=== PATIENT | female | born 1960 | race Caucasian/White ===

== ENCOUNTER 2018-10-22 21:42 | Emergency (ER) | payer OTHER ==
[2018-10-22 21:59] VITALS: BP 122/61
[2018-10-22] MEDS ORDERED: Ondansetron 4 MG Tab.DIS PO ONE (23:09)
--- NOTE | 2018-10-23 09:08 | ER ---
REASON FOR EMERGENCY ROOM VISIT: "I just do not feel good." HISTORY OF PRESENT ILLNESS: This 58-year-old woman has been on Flagyl and ciprofloxacin for diverticulitis for 9 days. She was diagnosed by her provider at [facility], and apparently, she had a CT scan and she tells me that the scan did not reveal any evidence of abscess and it was uncomplicated diverticulitis. She was given a 14-day supply of the above medications as an outpatient medical treatment for her diverticular disease. She vomited one time 2 nights ago and has nausea off and on since then. She has also had a mild headache, but this resolved. In addition to this, for the past 3 days, she has had pain along her right shoulder blade area and upper back area and also along her right upper chest near the right shoulder area. It is not pleuritic. It is not associated with any shortness of breath. She has had these symptoms for 3 days. The shoulder blade discomfort has been perhaps present for a few days longer. She thought she had a fever a couple of days ago, but did not actually check. It is noteworthy that she had a similar episode of right upper scapular back pain in 2016. At that time, she had shortness of breath with it and a workup at that time concluded that it was probably musculoskeletal in origin. She was treated with NSAIDs and resolved. She has had loose stools since the onset of her abdominal discomfort and this has not changed. She denies any irritative voiding symptoms or hematuria. She has not had any blood in her stools. PAST MEDICAL HISTORY: 1. Diverticulitis as mentioned above. 2. Excision of benign sacral tumor in 04/2018, followed by lumbar fusion at the [facility]. 3. Left breast lumpectomy for breast carcinoma. CURRENT MEDICATIONS: Include ciprofloxacin and Flagyl, see EMR. She is also taking aspirin. ALLERGIES: None to medications. REVIEW OF SYSTEMS: Pertinent positives and negatives as listed in the HPI. PHYSICAL EXAMINATION: GENERAL: She is in no acute distress. VITAL SIGNS: Her blood pressure is 122/61, pulse is 77, respirations 20, and O2 saturations 97%. HEENT: Head is normocephalic. No scleral icterus is noted. No conjunctivitis. Mouth, no pharyngitis. NECK: Supple with no tenderness. Normal passive range of motion. No JVD is noted. CHEST: Clear to auscultation with good air exchange bilaterally and no wheezes, rhonchi, or rales. She does have some mild tenderness in the upper outer area of her chest wall to palpation, but this is only mild. CARDIAC: Regular rate without murmur. ABDOMEN: Obese, soft. She has minimal tenderness to deep palpation in the left lower quadrant without any rebound. No percussion tenderness. No guarding is noted. No palpable masses. No hepatosplenomegaly. EXTREMITIES: Her right shoulder; there is no crepitus on passive range of motion, there is no pain elicited on passive range of motion. BACK: Examination of her back reveals some tenderness on palpation along the medial aspect of her right scapula. This is quite reproducible and she states this is exactly the same kind of pain that she has been experiencing recently. FURTHER EMERGENCY ROOM COURSE: The patient had a CBC and she has no leukocytosis. She is not anemic. CMP was performed and she has an anion gap of 16.8. Her electrolytes are normal. Her liver enzymes are normal. Creatinine is normal and her GFR is greater than 60. Troponin I was obtained and this was less than 0.017. A C. difficile toxin was obtained and this was negative. A 12-lead EKG was obtained and it showed no acute changes. IMPRESSION: Her gastrointestinal side effects may be due to the antibiotics. It is reassuring that her Clostridium difficile toxin was negative. She is supposed to be followed up by her primary care provider next week. I reassured her that I think her back pain and upper chest wall pain were not cardiac in origin, and she agrees that her symptoms are similar to that which was described from her visit of 2016. She felt quite reassured by the findings. I told her if she experiences worsening symptoms, particularly abdominal pain or worsening of diarrhea, nausea and vomiting, that she should return and be seen again. She understands. All questions were answered. PEREZ /[id number]
--- NOTE | 2018-11-08 07:06 | ER ---
ADDENDUM: FINAL IMPRESSION: Diverticulitis. MMODAL /[id number]
== END 2018-10-23 00:30 | disposition home or self-care (01) ==
LOC: JD.ED 21:42
DX: K57.92 Diverticulitis of intestine, part unspecified, without perforation or abscess without bleeding (principal)
CPT/HCPCS: 36415; 80053; 84484; 85025; 87493; 93005; 99285; A9270; 99282

== ENCOUNTER 2019-12-31 09:47 | Emergency (ER) | payer OTHER ==
[2019-12-31] MEDS ORDERED: Sodium Chloride 0.9% 1,000 ML IV STA (10:09)
[2019-12-31] MEDS ORDERED: Ondansetron 4 MG/2 ML SDV IVPUSH ONE (10:09)
--- NOTE | 2019-12-31 10:14 | EDM.PDOC ---
ED HPI GENERAL MEDICAL PROBLEM - General Chief Complaint: Abdominal Pain Stated Complaint: LOWER ABD PAIN Time Seen by Provider: 12/31/19 10:05 Source of Information: Reports: Patient History Limitations: Reports: No Limitations - History of Present Illness INITIAL COMMENTS - FREE TEXT/NARRATIVE: The patient presents with lower abdominal pain. This started yesterday. She has nausea with it but no vomiting. She has a little diarrhea. She has a history of recurrent UTIs and diverticulitis. She has no dysuria or hematuria. She has no blood in her stool. 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 She has no appendix but she still has a gallbladder. She has no fever, chills, cough, chest pain, or shortness of breath. Onset: Gradual Duration: Day(s): Location: Reports: Abdomen Quality: Reports: Sharp Severity: Moderate Improves with: Reports: None Worsens with: Reports: None Associated Symptoms: Reports: Nausea/Vomiting. Denies: Chest Pain, Cough, Fever /Chills, Headaches, Shortness of Breath Bilateral Abdomen Pain Score (Numeric/FACES): 6 - Related Data Allergies Allergy/AdvReac Type Severity Reaction Status Date / Time latex Allergy Hives Verified 12/31/19 09:58 Anesthetics - Belia Type- AdvReac Nausea and Verified 12/31/19 09:58 Parabens Vomiting [Anesthetics - Belia Type] Home Meds: Home Meds Multivitamin [Multi Vitamin Daily] 1 tab PO DAILY 05/24/14 [History] Aspirin [Ecotrin] 81 mg PO DAILY 12/24/15 [History] Amoxicillin/Potassium Clav [Augmentin 875-125 Tablet] 1 each PO BID #20 tablet 12/31/19 [Rx] Ondansetron [Zofran ODT] 4 mg PO Q6H PRN #20 tab.dis 12/31/19 [Rx] Pravastatin [Pravachol] 12/31/19 [History] Past Medical History HEENT History: Reports: Cataract Cardiovascular History: Reports: High Cholesterol Gastrointestinal History: Reports: Diverticulosis 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: Musculoskeletal History: Reports: Other (See Below) Other Musculoskeletal History: 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; 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 Psychiatric History: Reports: Anxiety Oncologic (Cancer) History: Reports: Breast - Infectious Disease History Infectious Disease History: Reports: Chicken Pox - Past Surgical History GI Surgical History: Reports: Appendectomy Female Surgical History: Reports: Hysterectomy Social & Family History - Family History Family Medical History: Noncontributory - Tobacco Use Smoking Status *Q: Never Smoker - Caffeine Use Caffeine Use: Reports: Coffee, Soda, Tea - Recreational Drug Use Recreational Drug Use: No - Living Situation & Occupation Living situation: Reports: Occupation: Employed ED ROS GENERAL - Review of Systems Review Of Systems: See Below Constitutional: Reports: No Symptoms HEENT: Reports: No Symptoms Respiratory: Reports: No Symptoms Cardiovascular: Reports: No Symptoms Endocrine: Reports: No Symptoms GI/Abdominal: Reports: Abdominal Pain, Diarrhea, Nausea. Denies: Vomiting : Reports: No Symptoms Musculoskeletal: Reports: No Symptoms ED EXAM, GI/ABD - Physical Exam Exam: See Below Exam Limited By: No Limitations General Appearance: Alert, No Apparent Distress Ears: Normal External Exam Nose: Normal Inspection Head: Atraumatic, Normocephalic Neck: Normal Inspection, Supple, Non-Tender Respiratory/Chest: No Respiratory Distress, Lungs Clear, Normal Breath Sounds Cardiovascular: Regular Rate, Rhythm, No Edema, No Murmur GI/Abdominal Exam: Soft, No Organomegaly, No Mass, Tender (Moderate tenderness to the lower abdomen) Course - Vital Signs Last Recorded V/S: Last Vital Signs Temp 97.2 F 12/31/19 09:54 Pulse 82 12/31/19 09:54 Resp 15 12/31/19 09:54 BP 155/83 H 12/31/19 09:54 Pulse Ox 98 12/31/19 09:54 - Orders/Labs/Meds Orders: Active Orders 24 hr Category Date Time Status Peripheral IV Care [RC] . DIRECTED Care 12/31/19 10:09 Active Abdomen Pelvis w Cont [CT] Stat Exams 12/31/19 10:09 Taken UA W/MICROSCOPIC [URIN] Stat Lab 12/31/19 10:11 Ordered Sodium Chloride 0.9% [Saline Flush] Med 12/31/19 10:09 Active 10 ml FLUSH ASDIRECTED PRN ED Antiemetic Medication Reflex [OM.PC] Stat Oth 12/31/19 10:09 Ordered Peripheral IV Insertion Adult [OM.PC] Stat Oth 12/31/19 10:09 Ordered Medication Orders Sodium Chloride (Saline Flush) 10 ml FLUSH ASDIRECTED PRN PRN Reason: Keep Vein Open Last Admin: 12/31/19 11:44 Dose: 10 ml Admin: 12/31/19 10:15 Dose: 10 ml Labs: Laboratory Tests 12/31/19 12/31/19 Range/Units 10:05 10:05 WBC 10.55 H (3.98-10.04) K/mm3 RBC 4.65 (3.98-5.22) M/mm3 Hgb 13.6 (11.2-15.7) gm/dl Hct 42.5 (34.1-44.9) % MCV 91.4 D (79.4-94.8) fl MCH 29.2 (25.6-32.2) pg MCHC 32.0 L (32.2-35.5) g/dl RDW Std Deviation 45.9 (36.4-46.3) fL Plt Count 231 (182-369) K/mm3 MPV 11.3 (9.4-12.3) fl Neut % (Auto) 66.4 (34.0-71.1) % Lymph % (Auto) 24.0 (19.3-51.7) % [place] % (Auto) 8.0 (4.7-12.5) % Eos % (Auto) 1.2 (0.7-5.8) Baso % (Auto) 0.2 (0.1-1.2) % Neut # (Auto) 7.01 H (1.56-6.13) K/mm3 Lymph # (Auto) 2.53 (1.18-3.74) K/mm3 [place] # (Auto) 0.84 H (0.24-0.36) K/mm3 Eos # (Auto) 0.13 (0.04-0.36) K/mm3 Baso # (Auto) 0.02 (0.01-0.08) K/mm3 Sodium 139 (136-145) mEq/L Potassium 4.3 (3.5-5.1) mEq/L Chloride 105 (98-107) mEq/L Carbon Dioxide 26 (21-32) mEq/L Anion Gap 12.3 (5-15) BUN 8 (7-18) mg/dL Creatinine 0.7 (0.55-1.02) mg/dL Est Cr Clr Drug Dosing 73.80 mL/min Estimated GFR (MDRD) > 60 (>60) mL/min BUN/Creatinine Ratio 11.4 L (14-18) Glucose 115 H (74-106) mg/dL Calcium 9.6 (8.5-10.1) mg/dL Total Bilirubin 0.8 (0.2-1.0) mg/dL AST 20 (15-37) U/L ALT 47 (14-59) U/L Alkaline Phosphatase 82 (46-116) U/L Total Protein 7.9 (6.4-8.2) g/dl Albumin 3.7 (3.4-5.0) g/dl Globulin 4.2 gm/dL Albumin/Globulin Ratio 0.9 L (1-2) Lipase 81 (73-393) U/L Meds: Medications Generic Name Dose Route Start Last Admin Trade Name Freq PRN Reason Stop Dose Admin Sodium Chloride 10 ml 12/31/19 10:09 12/31/19 11:44 Saline Flush FLUSH 10 ml ASDIRECTED PRN Administration Keep Vein Open Discontinued Medications Generic Name Dose Route Start Last Admin Trade Name Freq PRN Reason Stop Dose Admin Diatrizoate Meglum/Diatrizoate Sod 90 ml 12/31/19 11:00 12/31/19 11:44 Gastrografin 37% PO 12/31/19 11:01 90 ml ONETIME ONE Administration Sodium Chloride 1,000 mls @ 1,000 mls/hr 12/31/19 10:09 12/31/19 10:13 Normal Saline IV 12/31/19 11:08 1,000 mls/hr .BOLUS STA Administration Iopamidol 100 ml 12/31/19 11:00 12/31/19 11:44 Isovue-300 (61%) IVPUSH 12/31/19 11:01 100 ml ONETIME ONE Administration Ondansetron HCl 4 mg 12/31/19 10:09 12/31/19 10:14 Zofran IVPUSH 12/31/19 10:10 4 mg ONETIME ONE Administration - Re-Assessments/Exams Free Text/Narrative Re-Assessment/Exam: 12/31/19 10:13 I ordered an IV NS 1L bolus, zofran 4mg IV, dilaudid 1mg IV, labs, UA and a CT of her abdomen and pelvis. 12/31/19 12:31 Her WBC was elevated at 10.55. Her CMP is negative. Her lipase is normal. Her CT shows diverticulosis and bowel wall thickening along the rectosigmoid colon. Moderate inflammatory changes. No evidence of perforation or abscess formation or bleeding. Findings consistent with acute diverticulitis. I am waiting on a UA. I will get her on some augmentin. Departure - Departure Time of Disposition: 12:50 Disposition: Home, Self-Care 01 Condition: Good Clinical Impression: Diverticulitis - Discharge Information *PRESCRIPTION DRUG MONITORING PROGRAM REVIEWED*: Not Applicable *COPY OF PRESCRIPTION DRUG MONITORING REPORT IN PATIENT TEJINDER: Not Applicable Prescriptions: Amoxicillin/Potassium Clav [Augmentin 875-125 Tablet] 1 each PO BID #20 tablet Ondansetron [Zofran ODT] 4 mg PO Q6H PRN #20 tab.dis PRN Reason: Nausea\vomiting Referrals: Teofilo Mcfadden MD [Primary Care Provider] - 1 Week Forms: ED Department Discharge Additional Instructions: Take the augmentin 2 times per day for 10 days. Drink plenty of fluids. Take motrin or tylenol for pain. If that does not help, use your pain meds from your back surgery. Use the zofran 4mg every 6 hours as needed for nausea or vomiting. Please return if you are worse such as more pain, nausea or vomiting. Sepsis Event Note - Evaluation Sepsis Screening Result: No Definite Risk - Focused Exam Vital Signs: Vital Signs Temp Pulse Resp BP Pulse Ox 12/31/19 09:54 97.2 F 82 15 155/83 H 98 Date Exam was Performed: 12/31/19 Time Exam was Performed: 12:44 - My Orders Last 24 Hours: My Active Orders 12/31/19 10:09 Peripheral IV Care [RC] . DIRECTED Abdomen Pelvis w Cont [CT] Stat Sodium Chloride 0.9% [Saline Flush] 10 ml FLUSH ASDIRECTED PRN ED Antiemetic Medication Reflex [OM.PC] Stat Peripheral IV Insertion Adult [OM.PC] Stat 12/31/19 10:11 UA W/MICROSCOPIC [URIN] Stat - Assessment/Plan Last 24 Hours: My Active Orders 12/31/19 10:09 Peripheral IV Care [RC] . DIRECTED Abdomen Pelvis w Cont [CT] Stat Sodium Chloride 0.9% [Saline Flush] 10 ml FLUSH ASDIRECTED PRN ED Antiemetic Medication Reflex [OM.PC] Stat Peripheral IV Insertion Adult [OM.PC] Stat 12/31/19 10:11 UA W/MICROSCOPIC [URIN] Stat
[2019-12-31] MEDS: Sodium Chloride 0.9% 10 ML Syringe FLUSH PRN ×2 (10:15→11:44)
[2019-12-31] MEDS ORDERED: Iopamidol 612 MG/ML 100 ML Bottle IVPUSH ONE (11:00)
[2019-12-31] MEDS ORDERED: Diatrizoate Meglumine/Diatrizoate Sodium 37% 120 ML Bottle PO ONE (11:00)
[2019-12-31 13:16] VITALS: BP 120/70; PULSE 66
--- NOTE | 2019-12-31 13:51 | CT ---
CT abdomen and pelvis Technique: Multiple axial sections were obtained from above the dome of the diaphragm inferiorly through the pubic symphysis. Intravenous and oral contrast was utilized. Delayed images were also obtained through the bladder. Comparison: Prior CT abdomen and pelvis exam of 12/20/14. Findings: Visualized lung bases show nothing acute. Fatty infiltration is noted within the liver. Spleen appears within normal limits. Adrenal glands show no nodule. Gallbladder shows no calcified gallstones. Kidneys show symmetric contrast enhancement without hydronephrosis or mass. Small nonobstructing calculus is noted within the upper right kidney. Small cortical cyst is noted within the left kidney. Aorta shows no aneurysm. No retroperitoneal adenopathy is seen. No mesenteric abnormalities are seen. Diverticulosis is noted within sigmoid colon. There is an area of bowel wall thickening within the sigmoid colon with surrounding inflammatory change which appears to involve a diverticuli. Findings are most likely due to diverticulitis. No fluid collections are seen at this time to indicate abscess. Delayed images shows contrast within the distal ureters and within the bladder. Previous lumbar spine surgery noted at L4-5 and L5-S1. Mild scattered degenerative change is noted within the spine. Small fat-containing umbilical hernia is noted. Impression: 1. Findings compatible with diverticulitis involving the sigmoid colon. 2. Other findings which are believed to be nonacute as noted above. Diagnostic code #3 This report was dictated in [place] Standard Time I agree with preliminary report from [facility], finalized on 12/31/19, 1:26 PM Central Time
== END 2019-12-31 13:16 | disposition home or self-care (01) ==
LOC: JD.ED 09:47
DX: K57.32 Diverticulitis of large intestine without perforation or abscess without bleeding (principal); E78.00 Pure hypercholesterolemia, unspecified; Z79.82 Long term (current) use of aspirin; Z91.040 Latex allergy status; Z79.899 Other long term (current) drug therapy
CPT/HCPCS: 36415; 74177; 80053; 81001; 83690; 85025; 96361; 96374; 99284; J2405; J7030; Q9963; Q9967

== ENCOUNTER 2020-01-01 15:11 | Emergency (ER) | payer OTHER ==
[2020-01-01 15:31] VITALS: BP 133/86; PULSE 83
[2020-01-01] MEDS ORDERED: Ondansetron 4 MG/2 ML SDV IVPUSH ONE (15:48)
[2020-01-01] MEDS ORDERED: Sodium Chloride 0.9% 10 ML Syringe FLUSH PRN (15:48)
[2020-01-01] MEDS ORDERED: Sodium Chloride 0.9% 1,000 ML IV SCH (16:00)
--- NOTE | 2020-01-01 16:43 | EDM.PDOC ---
<Brijesh Amaya - Last Filed: 01/01/20 16:44> ED HPI GENERAL MEDICAL PROBLEM - General Chief Complaint: Gastrointestinal Problem Stated Complaint: Diverticulitis and medication reaction Time Seen by Provider: 01/01/20 15:30 Source of Information: Reports: Patient History Limitations: Reports: No Limitations - History of Present Illness INITIAL COMMENTS - FREE TEXT/NARRATIVE: Miss Denis presents today for complaints of nausea and vomiting (4 times), after being seen in the ED the day prior (12/31/2019) by Dr. Jose Mcdaniels for diagnosis and treatment of sigmoidal diverticulitis. She reports she was started on Augmentin 875 bid x 10 days, and has thus far taken 3 pills total. Her new vomiting and nausea symptoms started this morning at 4 a.m. and since that time she has vomited 4 times and had one episode of diarrhea. She reports that she forgot to inform Dr. Mcdaniels yesterday that she normally does not tolerate Augmentin well and thinks this is the reasons for her new symptoms. She denies any other passive abdominal pain, and only reports pain over the suprapubic region when palpated, and denies pain with defecation. Her only other reported symptoms were a headache, "feeling dry and dehydrated from vomiting" and that she had a "fever last night of 99.7 degrees F", but excluding that denies chest pain or palpitations, dyspnea, cough, dysuria, flank or kidney pain. She has a PMH of UTIs and other diverticulitis episodes. Upon inquiring what she has taken in the past for diverticulitis she stated ciprofloxacin and metronidazole. Headache Pain Score (Numeric/FACES): 6 - Related Data Allergies Allergy/AdvReac Type Severity Reaction Status Date / Time latex Allergy Hives Verified 01/01/20 15:30 amoxicillin [From Augmentin] AdvReac Nausea and Verified 01/01/20 16:46 Vomiting Anesthetics - Belia Type- AdvReac Nausea and Verified 01/01/20 15:30 Parabens Vomiting [Anesthetics - Belia Type] clavulanic acid AdvReac Nausea and Verified 01/01/20 16:46 [From Augmentin] Vomiting Home Meds: Home Meds Multivitamin [Multi Vitamin Daily] 1 tab PO DAILY 05/24/14 [History] Aspirin [Ecotrin] 81 mg PO DAILY 12/24/15 [History] Amoxicillin/Potassium Clav [Augmentin 875-125 Tablet] 1 each PO BID #20 tablet 12/31/19 [Rx] Ondansetron [Zofran ODT] 4 mg PO Q6H PRN #20 tab.dis 12/31/19 [Rx] Pravastatin [Pravachol] 1 tab PO DAILY 12/31/19 [History] Ciprofloxacin HCl [Cipro] 500 mg PO BID #20 tablet 01/01/20 [Rx] metroNIDAZOLE [Flagyl] 500 mg PO Q8H #20 tab 01/01/20 [Rx] Past Medical History HEENT History: Reports: Cataract Cardiovascular History: Reports: High Cholesterol Gastrointestinal History: Reports: Diverticulosis 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: Musculoskeletal History: Reports: Other (See Below) Other Musculoskeletal History: 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; 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 Psychiatric History: Reports: Anxiety Oncologic (Cancer) History: Reports: Breast - Infectious Disease History Infectious Disease History: Reports: Chicken Pox - Past Surgical History GI Surgical History: Reports: Appendectomy Female Surgical History: Reports: Hysterectomy Social & Family History - Family History Family Medical History: Noncontributory - Tobacco Use Smoking Status *Q: Never Smoker Second Hand Smoke Exposure: No - Caffeine Use Caffeine Use: Reports: None - Recreational Drug Use Recreational Drug Use: No - Living Situation & Occupation Living situation: Reports: Occupation: Employed ED ROS GENERAL - Review of Systems Constitutional: Reports: Fever (Reported by pt of "99.7"), Fatigue HEENT: Reports: Other (Headache ) Respiratory: Reports: No Symptoms Cardiovascular: Reports: No Symptoms Endocrine: Reports: No Symptoms GI/Abdominal: Reports: Abdominal Pain (suprapubic region - diagnosed with sigmoidal diverticulitis on prior ED visit ), Nausea, Vomiting (Seems to be a related to starting the Augmentin ) : Reports: No Symptoms Musculoskeletal: Reports: No Symptoms Skin: Reports: No Symptoms Neurological: Reports: No Symptoms Psychiatric: Reports: No Symptoms Hematologic/Lymphatic: Reports: No Symptoms Immunologic: Reports: No Symptoms ED EXAM, GI/ABD - Physical Exam Exam Limited By: No Limitations General Appearance: Alert, WD/WN, No Apparent Distress Head: Atraumatic, Normocephalic Respiratory/Chest: No Respiratory Distress, Lungs Clear, Normal Breath Sounds, Chest Non-Tender Cardiovascular: Normal Peripheral Pulses, Regular Rate, Rhythm, No Edema, No Gallop, No JVD, No Murmur, No Rub GI/Abdominal Exam: Normal Bowel Sounds, Soft, No Distention, No Abnormal Bruit, No Mass, Tender (Pain with suprapubic pressure ) (Female) Exam: Deferred Rectal (Female) Exam: Deferred Neurological: Alert, Oriented, Normal Cognition Psychiatric: Normal Affect, Normal Mood Lymphatic: No Adenopathy Course - Vital Signs Last Recorded V/S: Last Vital Signs Temp 97.8 F 01/01/20 15:27 Pulse 83 01/01/20 15:27 Resp 16 01/01/20 15:27 BP 133/86 01/01/20 15:27 Pulse Ox 93 L 01/01/20 15:27 - Orders/Labs/Meds Orders: Active Orders 24 hr Category Date Time Status Peripheral IV Care [RC] . DIRECTED Care 01/01/20 15:48 Active CRP [C-REACTIVE PROTEIN] [CHEM] Routine Lab 01/01/20 16:22 Received Sodium Chloride 0.9% [Normal Saline] 1,000 ml Med 01/01/20 16:00 Active IV ONETIME Sodium Chloride 0.9% [Saline Flush] Med 01/01/20 15:48 Active 10 ml FLUSH ASDIRECTED PRN Peripheral IV Insertion Adult [OM.PC] Stat Oth 01/01/20 15:47 Ordered Medication Orders Sodium Chloride (Normal Saline) 1,000 mls @ 999 mls/hr IV ONETIME [facility] Last Admin: 01/01/20 16:27 Dose: 999 mls/hr Sodium Chloride (Saline Flush) 10 ml FLUSH ASDIRECTED PRN PRN Reason: Keep Vein Open Last Admin: 01/01/20 17:12 Dose: 10 ml Labs: Laboratory Tests 01/01/20 01/01/20 Range/Units 16:22 16:22 WBC 8.31 (3.98-10.04) K/mm3 RBC 4.46 (3.98-5.22) M/mm3 Hgb 13.1 (11.2-15.7) gm/dl Hct 41.0 (34.1-44.9) % MCV 91.9 (79.4-94.8) fl MCH 29.4 (25.6-32.2) pg MCHC 32.0 L (32.2-35.5) g/dl RDW Std Deviation 45.2 (36.4-46.3) fL Plt Count 228 (182-369) K/mm3 MPV 10.8 (9.4-12.3) fl Neut % (Auto) 78.4 H (34.0-71.1) % Lymph % (Auto) 14.7 L (19.3-51.7) % Weston % (Auto) 6.0 (4.7-12.5) % Eos % (Auto) 0.6 L (0.7-5.8) Baso % (Auto) 0.2 (0.1-1.2) % Neut # (Auto) 6.51 H (1.56-6.13) K/mm3 Lymph # (Auto) 1.22 (1.18-3.74) K/mm3 Weston # (Auto) 0.50 H (0.24-0.36) K/mm3 Eos # (Auto) 0.05 (0.04-0.36) K/mm3 Baso # (Auto) 0.02 (0.01-0.08) K/mm3 Sodium 140 (136-145) mEq/L Potassium 4.2 (3.5-5.1) mEq/L Chloride 103 (98-107) mEq/L Carbon Dioxide 28 (21-32) mEq/L Anion Gap 13.2 (5-15) BUN 9 (7-18) mg/dL Creatinine 0.7 (0.55-1.02) mg/dL Est Cr Clr Drug Dosing 73.80 mL/min Estimated GFR (MDRD) > 60 (>60) mL/min BUN/Creatinine Ratio 12.9 L (14-18) Glucose 112 H (74-106) mg/dL Calcium 9.6 (8.5-10.1) mg/dL Total Bilirubin 0.6 (0.2-1.0) mg/dL AST 18 (15-37) U/L ALT 43 (14-59) U/L Alkaline Phosphatase 76 (46-116) U/L Total Protein 8.0 (6.4-8.2) g/dl Albumin 3.4 (3.4-5.0) g/dl Globulin 4.6 gm/dL Albumin/Globulin Ratio 0.7 L (1-2) Meds: Medications Generic Name Dose Route Start Last Admin Trade Name Savanna PRN Reason Stop Dose Admin Sodium Chloride 1,000 mls @ 999 mls/hr 01/01/20 16:00 01/01/20 16:27 Normal Saline IV 999 mls/hr ONETIME GELY Administration Sodium Chloride 10 ml 01/01/20 15:48 01/01/20 17:12 Saline Flush FLUSH 10 ml ASDIRECTED PRN Administration Keep Vein Open Discontinued Medications Generic Name Dose Route Start Last Admin Trade Name Savanna PRN Reason Stop Dose Admin Ondansetron HCl 4 mg 01/01/20 15:48 01/01/20 16:27 Zofran IVPUSH 01/01/20 15:49 4 mg ONETIME ONE Administration Departure - Departure Disposition: Home, Self-Care 01 Clinical Impression: Diverticulitis, Vomiting - Discharge Information Prescriptions: Ciprofloxacin HCl [Cipro] 500 mg PO BID #20 tablet metroNIDAZOLE [Flagyl] 500 mg PO Q8H #20 tab Referrals: Teofilo Mcfadden MD [Primary Care Provider] - Forms: ED Department Discharge Additional Instructions: Clear liquids and bland diet as tolerated, stop the Augmentin. Flagyl 500 mg 3 times daily for 1 week or until gone, Cipro 500 mg twice daily for 10 days or until gone. Prescriptions have been sent electronically to clinic pharmacy, start those antibiotics this evening. Try see Dr. Whipple in the clinic later this week, call for next available appointment, return to ED as needed. Sepsis Event Note - Evaluation Sepsis Screening Result: No Definite Risk - Focused Exam Vital Signs: Vital Signs Temp Pulse Resp BP Pulse Ox 01/01/20 15:27 97.8 F 83 16 133/86 93 L Date Exam was Performed: 01/01/20 Time Exam was Performed: 16:44 - My Orders Last 24 Hours: My Active Orders 01/01/20 15:47 Peripheral IV Insertion Adult [OM.PC] Stat 01/01/20 15:48 Peripheral IV Care [RC] . DIRECTED Sodium Chloride 0.9% [Saline Flush] 10 ml FLUSH ASDIRECTED PRN 01/01/20 16:00 Sodium Chloride 0.9% [Normal Saline] 1,000 ml IV ONETIME 01/01/20 16:22 CRP [C-REACTIVE PROTEIN] [CHEM] Routine - Assessment/Plan Last 24 Hours: My Active Orders 01/01/20 15:47 Peripheral IV Insertion Adult [OM.PC] Stat 01/01/20 15:48 Peripheral IV Care [RC] . DIRECTED Sodium Chloride 0.9% [Saline Flush] 10 ml FLUSH ASDIRECTED PRN 01/01/20 16:00 Sodium Chloride 0.9% [Normal Saline] 1,000 ml IV ONETIME 01/01/20 16:22 CRP [C-REACTIVE PROTEIN] [CHEM] Routine <Arnold Cassidy Castillo - Last Filed: 01/01/20 17:30> ED ROS GENERAL - Review of Systems Review Of Systems: See Below ED EXAM, GI/ABD - Physical Exam Exam: See Below Back Exam: No: CVA Tenderness (L), CVA Tenderness (R) Extremities: Normal Inspection. No: Pedal Edema, Leg Pain Skin Exam: Warm, Dry, Normal Color Course - Re-Assessments/Exams Free Text/Narrative Re-Assessment/Exam: 01/01/20 17:23 Initial hx and exam was done by John Coley PA student. I agree with Brijesh's hx and exam as documented. I have also examined and interviewed patient. I have reviewed the chart from yesterday's ED visit. She does feel better already after most of 1 L of normal saline, Zofran 4 mg IV. No active vomiting while here in the ED. Her discomfort at this time is tolerable. He feels up to going home. She is not tolerating the Augmentin and states she has had Augmentin intolerance in the past with similar symptoms but did not think of it last evening when she did start that medication. White blood count today is 8000 improved from somewhat over 10,000 yesterday. She is afebrile. Not dehydrated. Will switch her over to Cipro and Flagyl which she has tolerated without difficulty in the past. Discharge instructions as documented. Departure - Departure Time of Disposition: 17:25 Condition: Fair Sepsis Event Note - Focused Exam Date Exam was Performed: 01/01/20 Time Exam was Performed: 17:28
== END 2020-01-01 17:45 | disposition home or self-care (01) ==
LOC: JD.ED 15:11
DX: K57.92 Diverticulitis of intestine, part unspecified, without perforation or abscess without bleeding (principal); E78.00 Pure hypercholesterolemia, unspecified; F41.9 Anxiety disorder, unspecified; Z91.040 Latex allergy status; Z88.1 Allergy status to other antibiotic agents; Z91.048 Other nonmedicinal substance allergy status; Z79.82 Long term (current) use of aspirin; Z79.899 Other long term (current) drug therapy; Z90.49 Acquired absence of other specified parts of digestive tract
CPT/HCPCS: 36415; 80053; 85025; 86140; 96361; 96374; 99284; J2405; J7030; 99283

== ENCOUNTER 2020-01-15 17:19 | Emergency (ER) | payer OTHER ==
[2020-01-15 17:36] VITALS: BP 167/149; PULSE 114
[2020-01-15] MEDS ORDERED: Acetaminophen 325 MG Tab PO ONE (17:59)
--- NOTE | 2020-01-15 18:02 | EDM.PDOC ---
ED HPI GENERAL MEDICAL PROBLEM - General Chief Complaint: Respiratory Problem Stated Complaint: FEVER,SHORTNESS OF BREATH Time Seen by Provider: 01/15/20 17:38 Source of Information: Reports: Patient, Old Records, RN Notes Reviewed History Limitations: Reports: No Limitations - History of Present Illness INITIAL COMMENTS - FREE TEXT/NARRATIVE: Patient is a 59-year-old female who presents to the ED for the evaluation of multiple complaints. She states that over the last 3 days, she has been having a dry intermittent raspy cough, increased shortness of breath, and fever, and some mild chest discomfort due to the cough. She states that her fever has been as high as 100.6 F. Patient notes that she thought she had maybe a sinus/ head cold prior to this, she was trying to use steam from boiling water and this seemed to help relieve some of the symptoms. She is not having any nausea/ vomiting/diarrhea. She notes that her appetite has been fairly poor. She states that she has had a recent issue with diverticulitis, that she took her antibiotics for. Patient's primary care provider is Dr. Whipple. Patient states she has been taking Tylenol 3 times a day, her last dose was at noon. The patient states she has not had any [id number] travel, but has taken a few trips to [place] since the beginning of December, to see her son-in-law. Patient states that she has had multiple contacts with people that have traveled, she states she has a coworker that has traveled to [place] recently, another coworker that has come back from [place] recently, and a family member that has come back from [place]. - Related Data Allergies Allergy/AdvReac Type Severity Reaction Status Date / Time latex Allergy Hives Verified 01/15/20 17:36 amoxicillin [From Augmentin] AdvReac Nausea and Verified 01/15/20 17:36 Vomiting Anesthetics - Belia Type- AdvReac Nausea and Verified 01/15/20 17:36 Parabens Vomiting [Anesthetics - Belia Type] clavulanic acid AdvReac Nausea and Verified 01/15/20 17:36 [From Augmentin] Vomiting Home Meds: Home Meds Multivitamin [Multi Vitamin Daily] 1 tab PO DAILY 05/24/14 [History] Pravastatin [Pravachol] 1 tab PO DAILY 12/31/19 [History] Ascorbic Acid/Vitamin E/Biotin [Hair Skin Nails-Biotin Gummies] 2 each PO DAILY 01/15/20 [History] Cholecalciferol (Vitamin D3) [Vitamin D] 0 unit PO DAILY 01/15/20 [History] Past Medical History HEENT History: Reports: Cataract Cardiovascular History: Reports: High Cholesterol Gastrointestinal History: Reports: Diverticulosis [employer]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: Musculoskeletal History: Reports: Other (See Below) Other Musculoskeletal History: 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; fusion of lowest 2 vertebrae Psychiatric History: Reports: Anxiety Endocrine/Metabolic History: Reports: Obesity/BMI 30+ Hematologic History: Reports: Anesthesia Reaction Oncologic (Cancer) History: Reports: Breast - Infectious Disease History Infectious Disease History: Reports: Chicken Pox - Past Surgical History GI Surgical History: Reports: Appendectomy Female Surgical History: Reports: Hysterectomy Social & Family History - Family History Family Medical History: Noncontributory - Tobacco Use Smoking Status *Q: Never Smoker - Caffeine Use Caffeine Use: Reports: Coffee - Recreational Drug Use Recreational Drug Use: No - Living Situation & Occupation Living situation: Reports: Occupation: Employed ED ROS GENERAL - Review of Systems Review Of Systems: See Below Constitutional: Reports: Fever, Chills, Malaise, Decreased Appetite HEENT: Reports: Sinus Problem. Denies: Rhinitis Respiratory: Reports: Shortness of Breath, Cough Cardiovascular: Reports: Chest Pain (generalized chest discomfort) GI/Abdominal: Denies: Abdominal Pain, Constipation, Diarrhea, Nausea, Vomiting ED EXAM, GENERAL - Physical Exam Exam: See Below Exam Limited By: No Limitations General Appearance: Alert, WD/WN, No Apparent Distress Eye Exam: Bilateral Eye: EOMI, Normal Inspection, PERRL Ears: Normal External Exam Nose: Normal Inspection Throat/Mouth: Normal Inspection, Normal Lips, Normal Teeth, Normal Gums, Normal Oropharynx, Normal Voice, No Airway Compromise Head: Atraumatic, Normocephalic Neck: Normal Inspection Respiratory/Chest: No Respiratory Distress, Lungs Clear, No Accessory Muscle Use , Chest Non-Tender, Decreased Breath Sounds (decreased over R lung field) Cardiovascular: Normal Peripheral Pulses, Regular Rate, Rhythm, No Murmur Peripheral Pulses: 3+: Radial (L), Radial (R) GI/Abdominal: Normal Bowel Sounds, Soft, Non-Tender, No Distention, No Mass Extremities: Normal Inspection, Normal Capillary Refill Neurological: Alert, Oriented, Normal Cognition, No Motor/Sensory Deficits Psychiatric: Normal Affect, Normal Mood Skin Exam: Warm, Dry, Intact, Normal Color, No Rash Course - Vital Signs Last Recorded V/S: Last Vital Signs Temp 100.1 F 01/15/20 17:32 Pulse 114 H 01/15/20 17:32 Resp 16 01/15/20 17:32 BP 167/149 H 01/15/20 17:32 Pulse Ox 94 L 01/15/20 17:32 - Orders/Labs/Meds Orders: Active Orders 24 hr Category Date Time Status CORONAVIRUS COVID-19 PCR PHL [MREF] Stat Lab 01/15/20 18:22 Received Isolation [COMM] Routine Oth 01/15/20 17:40 Ordered Meds: Medications Discontinued Medications Generic Name Dose Route Start Last Admin Trade Name Savanna PRN Reason Stop Dose Admin Acetaminophen 975 mg 01/15/20 17:59 01/15/20 18:27 Tylenol PO 01/15/20 18:00 975 mg NOW ONE Administration - Re-Assessments/Exams Free Text/Narrative Re-Assessment/Exam: 01/15/20 18:03 Patient presents to the ED for the evaluation of few different complaints. Patient will be checked for influenza, coronavirus and have a chest x-ray done. Patient has had multiple contacts with people that have traveled, none have had positive coronavirus results, but she developed symptoms after being exposed to people that have traveled. Have also ordered 975 mg of Tylenol for fever relief in the ER. Departure - Departure Time of Disposition: 19:28 Disposition: Home, Self-Care 01 Condition: Fair Clinical Impression: Viral URI with cough - Discharge Information *PRESCRIPTION DRUG MONITORING PROGRAM REVIEWED*: No *COPY OF PRESCRIPTION DRUG MONITORING REPORT IN PATIENT TEJINDER: No Instructions: Viral Respiratory Infection, [id number] Referrals: Teofilo Mcfadden MD [Primary Care Provider] - Forms: ED Department Discharge Additional Instructions: You have been evaluated in the ED today for your cold like symptoms. Your influenza and RSV swabs were negative at today's visit. You did have a swab taken for coronavirus, this is a send out test, tests are sent to [facility] once daily at 2:30 PM, please note this can take up to 24 to 48 hours to get results. You will be called and made notified if you have positive or negative results. Please expect a call from a private number in the next few days. Your chest x-ray showed no signs of a pneumonia at today's visit. Please increase your fluid intake. Get plenty of rest as well. You should feel better in a few days. As with any illness, please try to limit your exposure to others to help mitigate the spread of germs. Please also remember to wash your hands after you cough/sneeze. Please try to limit touching your face, and then touching other surfaces. The [facility] is requesting that people that have been tested for coronavirus self quarantine at home, please try to not leave your house unless absolutely necessary. It is recommended that you self quarantine for at least 7 days after the first symptoms appeared. Recommend that you take some [id number] nasal decongestants, cough/cold remedies to combat this. You may take 500mg Tylenol (acetaminophen) or 600mg Advil/Motrin (ibuprofen) every 6 hours as needed for further pain/fever relief. Do not exceed 4000 mg Tylenol or 3200 mg ibuprofen in a 24-hour time span. If you have high blood pressure, medications like Coricidin would be adequate to use. If your symptoms are not better in one week's time recommend that you follow up in a clinic or your primary care provider. Our [facility] clinic number is , the [place] clinic is [phone]. Any family practice provider would be able to provide you with the services. Please return to the ED if your symptoms change or worsen. Sepsis Event Note - Evaluation Sepsis Screening Result: Possible Sepsis Risk - Focused Exam Vital Signs: Vital Signs Temp Pulse Resp BP Pulse Ox 01/15/20 17:32 100.1 F 114 H 16 167/149 H 94 L Date Exam was Performed: 01/15/20 Time Exam was Performed: 21:05 - My Orders Last 24 Hours: My Active Orders 01/15/20 17:40 Isolation [COMM] Routine 01/15/20 18:22 CORONAVIRUS COVID-19 PCR PHL [MREF] Stat - Assessment/Plan Last 24 Hours: My Active Orders 01/15/20 17:40 Isolation [COMM] Routine 01/15/20 18:22 CORONAVIRUS COVID-19 PCR PHL [MREF] Stat
--- NOTE | 2020-01-15 18:22 | CR ---
Chest: PA and lateral views of the chest were obtained. Comparison: Prior chest x-ray of 12/24/15 is available. Findings: Slight atelectasis is seen within the left lung base. Lungs otherwise are clear. Heart size and mediastinum are within normal limits. Bony structures are within normal limits for the patient's age. Impression: 1. Nothing acute is appreciated on 2 view chest x-ray. Diagnostic code #2 This report was dictated in MDT
== END 2020-01-15 19:50 | disposition home or self-care (01) ==
LOC: JD.ED 17:19
DX: J06.9 Acute upper respiratory infection, unspecified (principal); Z91.040 Latex allergy status; Z88.1 Allergy status to other antibiotic agents; Z88.8 Allergy status to other drugs, medicaments and biological substances
CPT/HCPCS: 71046; 87804; 87807; 99285; A9270; U0001; 99282

== ENCOUNTER 2020-07-02 10:38 | Inpatient (IN) | payer OTHER ==
--- NOTE | 2020-07-02 11:29 | EDM.PDOC ---
ED HPI GENERAL MEDICAL PROBLEM - General Chief Complaint: Gastrointestinal Problem Stated Complaint: HAS A ABSCESS Time Seen by Provider: 07/02/20 11:27 Source of Information: Reports: Patient History Limitations: Reports: No Limitations - History of Present Illness INITIAL COMMENTS - FREE TEXT/NARRATIVE: 59-year-old female presents to the ED after being seen in the walk-in clinic at [facility] this morning. She has a history of recurrent diverticulitis she estimates at least 4 5 times in the past. 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 This was done at the [facility]. She had a recent MRI of her lumbar spine but does not know the results. This was done as follow-up to see if the tumor had regrown. The last 3 days she has had gradually worsening left lower quadrant abdominal pain. Loss of appetite. Fever of 99 last night and 99.2 this morning. No nausea or vomiting. Stools are always on the loose side. No blood. Bowel movements do not hurt. She has chronic microscopic hematuria and voiding does not make the pain in her left lower quadrant any worse. In the clinic this morning they did lab work which showed an elevated white count at 13,000 with a left shift. No other markers for inflammation were done. Chemistry was normal including a normal lipase and a normal urinalysis. CT of the abdomen was carried out and revealed a diffuse sigmoid diverticulitis with a. Diverticular abscess of 13 mm in size. Comments if there was any free air. Did not send the CT over to the ED for further evaluation. She was sent to the ED for further evaluation. Onset: Gradual Onset Date: 06/29/20 Duration: Day(s):, Getting Worse Location: Reports: Abdomen (Left lower quadrant of the abdomen which she is able to localize very well.) Quality: Reports: Ache Severity: Moderate (Is a deep aching pain with occasional cramping pain) Improves with: Reports: Rest ( noted 10) Worsens with: Reports: Other Context: Reports: Other (Continuous occurrence.). Denies: Activity (Walking coughing and sitting in the car make it worse.), Exercise, Lifting, Sick Contact, Trauma Associated Symptoms: Reports: Fever/Chills (Grade), Loss of Appetite. Denies: Confusion, Chest Pain, Cough, cough w sputum, Diaphoresis ( low-grade fever appreciated this morning with a temperature of 99.1.), Headaches, Malaise, Nausea/Vomiting, Rash, Seizure, Shortness of Breath, Weakness Treatments IT DIRECTOR: Reports: Other (see below) (None.) Left Lower Abdomen Pain Score (Numeric/FACES): 1 - Related Data Allergies Allergy/AdvReac Type Severity Reaction Status Date / Time latex Allergy Hives Verified 07/02/20 10:49 amoxicillin [From Augmentin] AdvReac Nausea and Verified 07/02/20 10:49 Vomiting Anesthetics - Belia Type- AdvReac Nausea and Verified 07/02/20 10:49 Parabens Vomiting [Anesthetics - Belia Type] clavulanic acid AdvReac Nausea and Verified 07/02/20 10:49 [From Augmentin] Vomiting Home Meds: Home Meds Multivitamin [Multi Vitamin Daily] 1 tab PO DAILY 05/24/14 [History] Pravastatin [Pravachol] 1 tab PO DAILY 12/31/19 [History] Ascorbic Acid/Vitamin E/Biotin [Hair Skin Nails-Biotin Gummies] 2 each PO DAILY 01/15/20 [History] Cholecalciferol (Vitamin D3) [Vitamin D] 0 unit PO DAILY 01/15/20 [History] Aspirin [Aspirin EC] 81 mg PO DAILY 07/02/20 [History] Cranberry Ext/C/L. 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; fusion of lowest 2 vertebrae Neurological History: Reports: None Psychiatric History: Reports: Anxiety Endocrine/Metabolic History: Reports: Obesity/BMI 30+ Hematologic History: Reports: Anesthesia Reaction Immunologic History: Reports: None Oncologic (Cancer) History: Reports: Breast Dermatologic History: Reports: None - Infectious Disease History Infectious Disease History: Reports: Chicken Pox - Past Surgical History GI Surgical History: Reports: Appendectomy Female Surgical History: Reports: Hysterectomy (She believes her left ovary was removed but the right remains.), Oophorectomy (Left) Musculoskeletal Surgical History: Reports: Other (See Below) (In June 2018 she underwent 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 It is unclear what level this was at and apparently had been present for multiple years causing severe pain.) Social & Family History - Family History Family Medical History: Noncontributory - Tobacco Use Smoking Status *Q: Never Smoker - Caffeine Use Caffeine Use: Reports: Coffee, Tea - Recreational Drug Use Recreational Drug Use: No - Living Situation & Occupation Living situation: Reports: Occupation: Employed ED ROS GENERAL - Review of Systems Review Of Systems: See Below Constitutional: Reports: Fever, Malaise, Weakness, Fatigue, Decreased Appetite. Denies: Chills HEENT: Reports: No Symptoms Respiratory: Reports: No Symptoms Cardiovascular: Reports: No Symptoms Endocrine: Reports: No Symptoms GI/Abdominal: Reports: Abdominal Pain (Left lower quadrant abdominal pain), Diarrhea (Is are on the looser side), Decreased Appetite (. But not diarrhea.). Denies: Hematemesis, Hematochezia, Nausea, Vomiting : Reports: Frequency, Other (Has chronic microscopic hematuria which was been assessed by urology with negative cystoscopies.) Musculoskeletal: Reports: Back Pain (Chronic low back pain lumbar spine. Removal of a benign large tumor in 2018 from the spine through an anterior abdominal approach.) Skin: Reports: No Symptoms Neurological: Reports: No Symptoms Psychiatric: Reports: No Symptoms Hematologic/Lymphatic: Reports: No Symptoms Immunologic: Reports: No Symptoms ED EXAM, GI/ABD - Physical Exam Exam: See Below Exam Limited By: No Limitations General Appearance: Alert, WD/WN, No Apparent Distress, Other (Temperature is 36.8 with a heart rate of 97 respiratory is 18 with sats of 97% blood pressure is not recorded.) Eyes: Bilateral: Normal Appearance (No scleral icterus or blepharal pallor.) Throat/Mouth: Normal Inspection, Normal Lips, Normal Oropharynx Neck: Normal Inspection, Supple, Non-Tender, Full Range of Motion. No: Carotid Bruit, Lymphadenopathy (L), Lymphadenopathy (R) Respiratory/Chest: No Respiratory Distress, Lungs Clear, Normal Breath Sounds, No Accessory Muscle Use, Chest Non-Tender Cardiovascular: Normal Peripheral Pulses, Regular Rate, Rhythm, No Edema, No Gallop, No Murmur, No Rub GI/Abdominal Exam: No Organomegaly, Distended (All sounds are quite active in all 4 quadrants.), Guarding ( Streamline tender left lower quadrant of the abdomen with guarding and rebound.), Rebound (Lower quadrant lower quadrant), Tender ( Slightly distended tympanitic to percussion in all 4 quadrants.), Abnormal Bowel Sounds, Other (She has a positive Rovsing sign on the opposite side. She has a midline laparotomy incision which is healed well from umbilicus to the pubic symphysis.) Back Exam: Normal Inspection Extremities: Normal Inspection, Normal Range of Motion, Non-Tender, No Pedal Edema Neurological: Alert, Oriented, CN II-XII Intact, Normal Cognition, Normal Gait Psychiatric: Normal Affect, Normal Mood Skin Exam: Warm, Dry, Intact, Normal Color, No Rash Course - Vital Signs Last Recorded V/S: Last Vital Signs Temp 36.8 C 07/02/20 10:43 Pulse 97 07/02/20 10:43 Resp 18 07/02/20 10:43 BP Pulse Ox 97 07/02/20 10:43 - Orders/Labs/Meds Orders: Active Orders 24 hr Category Date Time Status CULTURE BLOOD [BC] Stat Lab 07/02/20 12:15 Received CULTURE BLOOD [BC] Stat Lab 07/02/20 12:25 Received Dextrose 5%-0.9% NaCl [Dextrose 5%-Normal Saline] 1,000 Med 07/02/20 11:45 Active ml IV ASDIRECTED Blood Culture x2 Reflex Set [OM.PC] Stat Oth 07/02/20 11:45 Ordered Medication Orders Acetaminophen (Tylenol) 975 mg PO Q8H GELY Dextrose/Sodium Chloride (Dextrose 5%-Normal Saline) 1,000 mls @ 150 mls/hr IV ASDIRECTED GELY Last Admin: 07/02/20 11:57 Dose: 150 mls/hr Documented by: KATERIN Levofloxacin/Dextrose 750 mg/ (Premix) 150 mls @ 100 mls/hr IV Q24H GELY Metronidazole 500 mg/ Premix 100 mls @ 100 mls/hr IV Q8H GELY Morphine Sulfate (Morphine) 1 mg IVPUSH Q4H PRN PRN Reason: Pain (severe 7-10) Oxycodone HCl (Oxycodone) 5 mg PO Q4H PRN PRN Reason: Pain (moderate 4-6) Labs: Laboratory Tests 07/02/20 07/02/20 07/02/20 Range/Units 12:15 12:25 12:50 WBC 11.01 H (3.98-10.04) K/mm3 RBC 4.15 (3.98-5.22) M/mm3 Hgb 12.4 (11.2-15.7) gm/dl Hct 38.5 (34.1-44.9) % MCV 92.8 (79.4-94.8) fl MCH 29.9 (25.6-32.2) pg MCHC 32.2 (32.2-35.5) g/dl RDW Std Deviation 46.9 H (36.4-46.3) fL Plt Count 243 (182-369) K/mm3 MPV 10.9 (9.4-12.3) fl Neutrophils % (Manual) 73 H (40-60) % Band Neutrophils % 0 (0-10) % Lymphocytes % (Manual) 18 L (20-40) % Atypical Lymphs % 0 % Monocytes % (Manual) 9 (2-10) % Eosinophils % (Manual) 0 L (0.7-5.8) % Basophils % (Manual) 0 L (0.1-1.2) Platelet Estimate Adequate RBC Morph Comment Normal Magnesium 1.9 (1.8-2.4) mg/dl C-Reactive Protein 23.1 H* (<1.0) mg/dL SARS Virus RNA (PCR) Negative (NEGATIVE) Meds: Medications Generic Name Dose Route Start Last Admin Trade Name Freq PRN Reason Stop Dose Admin Acetaminophen 975 mg 07/02/20 13:45 Tylenol PO Q8H [facility] Dextrose/Sodium Chloride 1,000 mls @ 150 mls/hr 07/02/20 11:45 07/02/20 11:57 Dextrose 5%-Normal Saline IV 150 mls/hr ASDIRECTED GELY Administration Levofloxacin/Dextrose 750 mg/ 150 mls @ 100 mls/hr 07/03/20 12:30 Premix IV Q24H GELY Metronidazole 500 mg/ Premix 100 mls @ 100 mls/hr 07/02/20 20:45 IV Q8H GELY Morphine Sulfate 1 mg 07/02/20 13:44 Morphine IVPUSH Q4H PRN Pain (severe 7-10) Oxycodone HCl 5 mg 07/02/20 13:44 Oxycodone PO Q4H PRN Pain (moderate 4-6) Discontinued Medications Generic Name Dose Route Start Last Admin Trade Name Savanna PRN Reason Stop Dose Admin Levofloxacin/Dextrose 750 mg/ 150 mls @ 100 mls/hr 07/02/20 11:45 07/02/20 12:37 Premix IV 07/02/20 13:14 100 mls/hr ONETIME ONE Administration Metronidazole 500 mg/ Premix 100 mls @ 100 mls/hr 07/02/20 11:47 07/02/20 12:45 IV 07/02/20 12:46 100 mls/hr ONETIME ONE Administration - Radiology Interpretation Free Text/Narrative:: 59-year-old female presents to the ED for evaluation of gradually worsening left lower quadrant abdominal pain over the last 3 days and perhaps a little longer. Low-grade fever developing last night and noted again at 3:00 this morning of 99.1. Gradually worsening left lower quadrant abdominal pain which he feels is secondary to diverticulitis and was confirmed at the clinic today with CT scan of the abdomen and pelvis. It did reveal a periappendiceal abscess approximately 13 mm in size. I do not have the CT present in the department to look at. Lab work revealed a slightly elevated white count at 13.5 with a left shift. Blood cultures were not done. Examination confirms peritoneal signs with guarding and rebound in the left lower quadrant of the abdomen and a positive rub sign which is opposite to the norm. Plan will start antibiotic Levaquin 750 mg IV and Flagyl 500 mg IV. Will discuss case with surgeon to see whether or not they feel she needs to be seen in a larger center for potential interventional radiology drainage of sigmoid abscess. - Re-Assessments/Exams Free Text/Narrative Re-Assessment/Exam: 07/02/20 11:[address] Mayur Stoner on-call surgeon who is in the OR at this time. Over the speaker phone we agreed that the patient should be admitted to the hospital for IV antibiotic therapy. He request that I write bridge orders and he will see her on the oneill when she is finished up with surgery. 07/02/20 14:[address] scan done of the abdomen and pelvis this morning at [facility] to be sent over to the PACS system it has not yet arrived on my last look for it.White count is slightly elevated 11.01. It is 73% neutrophils with no bands cells reported. Hemoglobin is 12.4 with hematocrit of 38.5. Platelet count is 243,000. Serum magnesium is normal at 1.9 C-reactive protein markedly elevated at 23.1. COVID 19 test is negative. The remainder the labs came across with the patient and revealed no metabolic abnormalities and normal platelet count. Departure - Departure Time of Disposition: 14:33 Disposition: Admitted As Inpatient 65 Condition: Fair Clinical Impression: Acute diverticulitis Abdominal pain Qualifiers: Abdominal location: left lower quadrant Qualified Code(s): R10.32 - Left lower quadrant pain - Discharge Information *PRESCRIPTION DRUG MONITORING PROGRAM REVIEWED*: Not Applicable *COPY OF PRESCRIPTION DRUG MONITORING REPORT IN PATIENT TEJINDER: Not Applicable Sepsis Event Note (ED) - Evaluation Sepsis Screening Result: No Definite Risk - Focused Exam Vital Signs: Vital Signs Temp Pulse Resp Pulse Ox 07/02/20 10:43 36.8 C 97 18 97 - My Orders Last 24 Hours: My Active Orders 07/02/20 11:45 Dextrose 5%-0.9% NaCl [Dextrose 5%-Normal Saline] 1,000 ml IV ASDIRECTED Blood Culture x2 Reflex Set [OM.PC] Stat 07/02/20 12:15 CULTURE BLOOD [BC] Stat 07/02/20 12:25 CULTURE BLOOD [BC] Stat - Assessment/Plan Last 24 Hours: My Active Orders 07/02/20 11:45 Dextrose 5%-0.9% NaCl [Dextrose 5%-Normal Saline] 1,000 ml IV ASDIRECTED Blood Culture x2 Reflex Set [OM.PC] Stat 07/02/20 12:15 CULTURE BLOOD [BC] Stat 07/02/20 12:25 CULTURE BLOOD [BC] Stat
[2020-07-02] MEDS ORDERED: Levofloxacin/Dextrose 5%-Water 750 MG in Premix Bag 1 BAG IV ONE (11:45)
[2020-07-02] MEDS ORDERED: metroNIDAZOLE/Normal Saline 500 MG in Premix Bag 1 BAG IV ONE (11:47)
[2020-07-02] MEDS: Dextrose 5%-0.9% NaCl 1,000 ML IV SCH ×2 (11:57→21:01)
[2020-07-02] MEDS ORDERED: Morphine 2 MG/ML SYRINGE IVPUSH PRN (13:44)
[2020-07-02] MEDS ORDERED: oxyCODONE 5 MG Tab PO PRN (13:44)
--- NOTE | 2020-07-02 13:54 | PCM.HP.2 ---
H&P History of Present Illness - General Date of Service: 07/02/20 Admit Problem/Dx: Admission Diagnosis/Problem Admission Diagnosis/Problem Acute diverticulitis of intestine Source of Information: Patient History Limitations: Reports: No Limitations - History of Present Illness Onset of Symptoms: Reports: Today Other HPI/Comments: Mr.s Denis is a 59 yo woman with history of diverticulitis who presents to the ER with LLQ abdominal pain, similar to previous episodes of diverticulitis. She has been having pain for about two weeks, and has gotten steadily worse. Her last bowel movement was today. She reports she last had a colonoscopy about 5 y ears ago; she has had now 5 episodes of diverticulitis, and the initial episode preceded her most recent colonoscopy. She was seen at the [facility] walk-in clinic today and had a CT scan which reportedly shows diverticulitis of the sigmoid colon with 1.3 cm associated abscess. Left Lower Abdomen Pain Score (Numeric/FACES): 1 - Related Data Allergies/Adverse Reactions: Allergies Allergy/AdvReac Type Severity Reaction Status Date / Time latex Allergy Hives Verified 07/02/20 10:49 amoxicillin [From Augmentin] AdvReac Nausea and Verified 07/02/20 10:49 Vomiting Anesthetics - Belia Type- AdvReac Nausea and Verified 07/02/20 10:49 Parabens Vomiting [Anesthetics - Belia Type] clavulanic acid AdvReac Nausea and Verified 07/02/20 10:49 [From Augmentin] Vomiting Home Medications: Home Meds Multivitamin [Multi Vitamin Daily] 1 tab PO DAILY 05/24/14 [History] Pravastatin [Pravachol] 1 tab PO DAILY 12/31/19 [History] Ascorbic Acid/Vitamin E/Biotin [Hair Skin Nails-Biotin Gummies] 2 each PO DAILY 01/15/20 [History] Cholecalciferol (Vitamin D3) [Vitamin D] 0 unit PO DAILY 01/15/20 [History] Aspirin [Aspirin EC] 81 mg PO DAILY 07/02/20 [History] Cranberry Ext/C/L. 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; fusion of lowest 2 vertebrae Neurological History: Reports: None Psychiatric History: Reports: Anxiety Endocrine/Metabolic History: Reports: Obesity/BMI 30+ Hematologic History: Reports: Anesthesia Reaction Immunologic History: Reports: None Oncologic (Cancer) History: Reports: Breast Dermatologic History: Reports: None - Infectious Disease History Infectious Disease History: Reports: Chicken Pox - Past Surgical History GI Surgical History: Reports: Appendectomy Female Surgical History: Reports: Hysterectomy (She believes her left ovary was removed but the right remains.), Oophorectomy (Left) Musculoskeletal Surgical History: Reports: Other (See Below) (In June 2018 she underwent 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 It is unclear what level this was at and apparently had been present for multiple years causing severe pain.) Social & Family History - Family History Family Medical History: Noncontributory - Tobacco Use Smoking Status *Q: Never Smoker - Caffeine Use Caffeine Use: Reports: Coffee, Tea - Recreational Drug Use Recreational Drug Use: No - Living Situation & Occupation Living situation: Reports: Occupation: Employed H&P Review of Systems - Review of Systems: Review Of Systems: See Below General: Reports: Malaise HEENT: Reports: No Symptoms Pulmonary: Reports: No Symptoms Cardiovascular: Reports: No Symptoms Gastrointestinal: Reports: Abdominal Pain Genitourinary: Reports: No Symptoms Musculoskeletal: Reports: Back Pain Skin: Reports: No Symptoms Psychiatric: Reports: No Symptoms Neurological: Reports: No Symptoms Hematologic/Lymphatic: Reports: No Symptoms Immunologic: Reports: No Symptoms Exam - Exam Exam: See Below - Vital Signs Vital Signs: Last Vital Signs Temp 36.8 C 07/02/20 10:43 Pulse 97 07/02/20 10:43 Resp 18 07/02/20 10:43 BP Pulse Ox 97 07/02/20 10:43 Weight: 92.079 kg - Exam General: Alert, Oriented, Cooperative HEENT: Conjunctiva Clear Neck: Trachea Midline Lungs: Normal Respiratory Effort Cardiovascular: Regular Rate, Regular Rhythm GI/Abdominal Exam: Other (focal LLQ tenderness without rigidity. No palpable mass. Laparotomy scar noted wtih no evidence of hernia. ) (Female) Exam: Deferred Extremities: Normal Inspection Skin: Warm, Dry Neuro Extensive - Mental Status: Alert, Oriented x3 Psychiatric: Normal Mood - Patient Data Lab Results Last 24 hrs: Laboratory Results - last 24 hr 07/02/20 07/02/20 Range/Units 12:15 12:25 WBC 11.01 H (3.98-10.04) K/mm3 RBC 4.15 (3.98-5.22) M/mm3 Hgb 12.4 (11.2-15.7) gm/dl Hct 38.5 (34.1-44.9) % MCV 92.8 (79.4-94.8) fl MCH 29.9 (25.6-32.2) pg MCHC 32.2 (32.2-35.5) g/dl RDW Std Deviation 46.9 H (36.4-46.3) fL Plt Count 243 (182-369) K/mm3 MPV 10.9 (9.4-12.3) fl Neutrophils % (Manual) 73 H (40-60) % Band Neutrophils % 0 (0-10) % Lymphocytes % (Manual) 18 L (20-40) % Atypical Lymphs % 0 % Monocytes % (Manual) 9 (2-10) % Eosinophils % (Manual) 0 L (0.7-5.8) % Basophils % (Manual) 0 L (0.1-1.2) Platelet Estimate Adequate RBC Morph Comment Normal Magnesium 1.9 (1.8-2.4) mg/dl C-Reactive Protein 23.1 H* (<1.0) mg/dL Result Diagrams: 07/02/20 12:25 Sepsis Event Note - Evaluation Sepsis Screening Result: No Definite Risk - Focused Exam Vital Signs: Vital Signs Temp Pulse Resp Pulse Ox 07/02/20 10:43 36.8 C 97 18 97 Problem List Initiated/Reviewed/Updated: Yes Orders Last 24hrs: Active Orders 24 hr Category Date Time Status Patient Status [ADT] Routine ADT 07/02/20 13:05 Active Activity as Tolerated [RC] .Routine Care 07/02/20 13:44 Ordered Antiembolic Devices [RC] PER UNIT ROUTINE Care 07/02/20 13:44 Ordered Oxygen Therapy [RC] PRN Care 07/02/20 13:44 Ordered RT Incentive Spirometry [RC] Q1HWA Care 07/02/20 13:44 Ordered Vital Signs [RC] Q15M Care 07/02/20 13:44 Ordered Vital Signs [RC] Q8H Care 07/02/20 13:44 Ordered Nothing Per Oral Diet [DIET] Diet 07/02/20 Breakfast Ordered BASIC METABOLIC PANEL,BMP [CHEM] AM Lab 07/03/20 05:11 Ordered CBC WITH AUTO DIFF [HEME] AM Lab 07/03/20 05:11 Ordered CORONAVIRUS COVID-19 DEMARCO [MOLEC] Stat Lab 07/02/20 12:50 Received CULTURE BLOOD [BC] Stat Lab 07/02/20 12:15 Received CULTURE BLOOD [BC] Stat Lab 07/02/20 12:25 Received Acetaminophen [TylenoL] Med 07/02/20 13:45 Ordered 975 mg PO Q8H Dextrose 5%-0.9% NaCl [Dextrose 5%-Normal Saline] 1,000 Med 07/02/20 11:45 Active ml IV ASDIRECTED Levofloxacin/Dextrose 5%-Water [Levaquin in D5W 750 MG/ Med 07/02/20 13:45 Ordered 150 ML] 750 mg Premix Bag 1 bag IV Q24H Morphine Med 07/02/20 13:44 Ordered 1 mg IVPUSH Q4H PRN metroNIDAZOLE/Normal Saline [Flagyl 500 MG in NS 100 ML Med 07/02/20 14:00 Ordered ] 500 mg Premix Bag 1 bag IV Q8H oxyCODONE Med 07/02/20 13:44 Ordered 5 mg PO Q4H PRN Blood Culture x2 Reflex Set [OM.PC] Stat Oth 07/02/20 11:45 Ordered Sequential Compression Device [OM.PC] Routine Oth 07/02/20 13:44 Ordered Resuscitation Status Routine Resus Stat 07/02/20 13:44 Ordered Medication Orders Acetaminophen (Tylenol) 975 mg PO Q8H GELY Dextrose/Sodium Chloride (Dextrose 5%-Normal Saline) 1,000 mls @ 150 mls/hr IV ASDIRECTED GELY Last Admin: 07/02/20 11:57 Dose: 150 mls/hr Documented by: KATERIN Levofloxacin/Dextrose 750 mg/ (Premix) 150 mls @ 100 mls/hr IV Q24H GELY Metronidazole 500 mg/ Premix 100 mls @ 100 mls/hr IV Q8H GELY Morphine Sulfate (Morphine) 1 mg IVPUSH Q4H PRN PRN Reason: Pain (severe 7-10) Oxycodone HCl (Oxycodone) 5 mg PO Q4H PRN PRN Reason: Pain (moderate 4-6) Assessment/Plan Comment:: Recurrent diverticulitis with very small abscess reported on CT. Plan: admit for bowel rest, IV antibiotics, fluids and monitoring. Request images from [facility]. Repeat labs in AM. Anticipate discharge to home tomorrow vs next day if labs are normal and patient can tolerated PO intake. Discussed repeat colonoscopy and sigmoid colectomy in the near future after she is recovered from this episode. - Mortality Measure Prognosis:: Good
[2020-07-02] MEDS: Acetaminophen 325 MG Tab PO SCH ×2 (15:05→21:37)
[2020-07-02] MEDS: metroNIDAZOLE/Normal Saline 500 MG in Premix Bag 1 BAG IV SCH (20:42)
[2020-07-03] MEDS: metroNIDAZOLE/Normal Saline 500 MG in Premix Bag 1 BAG IV SCH (04:37)
[2020-07-03] MEDS: Dextrose 5%-0.9% NaCl 1,000 ML IV SCH (04:38)
[2020-07-03] MEDS: Acetaminophen 325 MG Tab PO SCH ×2 (04:58→13:16)
[2020-07-03 11:47] VITALS: BP 117/72; PULSE 73
--- NOTE | 2020-07-03 12:11 | PCM.DCSUM1 ---
Discharge Summary - Hospital Course Free Text/Narrative:: Mrs. Denis presented to the ER from [facility] due to a recurrent episode of diverticulitis. She had a CT scan which showed a very small associated abscess, too small for a drain. She was kept NPO and antibiotics were started. She quickly improved, and the following day her WBC was back to normal. Her diet was advanced and she was switched over to an oral antibiotic regimen. Diagnosis: Stroke: No - Discharge Data Discharge Date: 07/03/20 Discharge Disposition: Home, Self-Care 01 Condition: Good - Referral to Home Health Primary Care Physician: Teofilo Mcfadden MD - Patient Summary/Data Recommended Follow-up Testing/Procedures: colonoscopy and sigmoid colectomy after resolution of diverticulitis. - Patient Instructions Diet: Usual Diet as Tolerated Showering/Bathing: May Shower Notify Provider of: Fever, Increased Pain, Nausea and/or Vomiting - Discharge Plan *PRESCRIPTION DRUG MONITORING PROGRAM REVIEWED*: Not Applicable *COPY OF PRESCRIPTION DRUG MONITORING REPORT IN PATIENT TEJINDER: Not Applicable Prescriptions/Med Rec: Levofloxacin 750 mg PO DAILY #14 tablet metroNIDAZOLE [Metronidazole] 500 mg PO Q8H #42 tablet oxyCODONE 5 mg PO Q6H PRN #10 tab PRN Reason: Pain Home Medications: Home Meds Multivitamin [Multi Vitamin Daily] 1 tab PO DAILY 05/24/14 [History] Pravastatin [Pravachol] 20 mg PO DAILY 12/31/19 [History] Ascorbic Acid/Vitamin E/Biotin [Hair Skin Nails-Biotin Gummies] 2 each PO DAILY 01/15/20 [History] Cholecalciferol (Vitamin D3) [Vitamin D] 2 tab PO DAILY 01/15/20 [History] Aspirin [Aspirin EC] 81 mg PO DAILY 07/02/20 [History] Cranberry Ext/C/L. Sporogenes [Azo Cranberry] 2 tab PO DAILY 07/02/20 [History] Levofloxacin 750 mg PO DAILY #14 tablet 07/03/20 [Rx] metroNIDAZOLE [Metronidazole] 500 mg PO Q8H #42 tablet 07/03/20 [Rx] oxyCODONE 5 mg PO Q6H PRN #10 tab 07/03/20 [Rx] Oxygen Therapy Mode: Room Air Patient Handouts: Diverticulitis, [id number] Forms: ED Department Discharge Referrals: Mayur Stoner MD [Physician] - Teofilo Mcfadden MD [Primary Care Provider] - - Discharge Summary/Plan Comment DC Time >30 min.: No - Patient Data Vitals - Most Recent: Last Vital Signs Temp 36.7 C 07/03/20 11:36 Pulse 73 07/03/20 11:36 Resp 20 07/03/20 11:36 BP 117/72 07/03/20 11:36 Pulse Ox 96 07/03/20 11:36 Weight - Most Recent: 90.945 kg I&O - Last 24 hours: Intake & Output 07/02/20 07/03/20 07/03/20 22:59 06:59 14:59 Intake Total 1683 300 Output Total 850 Balance 833 300 Lab Results - Last 24 hrs: Laboratory Results - last 24 hr 07/02/20 07/02/20 07/02/20 Range/Units 12:15 12:25 12:50 WBC 11.01 H (3.98-10.04) K/mm3 RBC 4.15 (3.98-5.22) M/mm3 Hgb 12.4 (11.2-15.7) gm/dl Hct 38.5 (34.1-44.9) % MCV 92.8 (79.4-94.8) fl MCH 29.9 (25.6-32.2) pg MCHC 32.2 (32.2-35.5) g/dl RDW Std Deviation 46.9 H (36.4-46.3) fL Plt Count 243 (182-369) K/mm3 MPV 10.9 (9.4-12.3) fl Neut % (Auto) (34.0-71.1) % Lymph % (Auto) (19.3-51.7) % Greer % (Auto) (4.7-12.5) % Eos % (Auto) (0.7-5.8) Baso % (Auto) (0.1-1.2) % Neut # (Auto) (1.56-6.13) K/mm3 Lymph # (Auto) (1.18-3.74) K/mm3 Greer # (Auto) (0.24-0.36) K/mm3 Eos # (Auto) (0.04-0.36) K/mm3 Baso # (Auto) (0.01-0.08) K/mm3 Neutrophils % (Manual) 73 H (40-60) % Band Neutrophils % 0 (0-10) % Lymphocytes % (Manual) 18 L (20-40) % Atypical Lymphs % 0 % Monocytes % (Manual) 9 (2-10) % Eosinophils % (Manual) 0 L (0.7-5.8) % Basophils % (Manual) 0 L (0.1-1.2) Platelet Estimate Adequate RBC Morph Comment Normal Sodium (136-145) mEq/L Potassium (3.5-5.1) mEq/L Chloride (98-107) mEq/L Carbon Dioxide (21-32) mEq/L Anion Gap (5-15) BUN (7-18) mg/dL Creatinine (0.55-1.02) mg/dL Est Cr Clr Drug Dosing mL/min Estimated GFR (MDRD) (>60) mL/min BUN/Creatinine Ratio (14-18) Glucose (74-106) mg/dL Calcium (8.5-10.1) mg/dL Magnesium 1.9 (1.8-2.4) mg/dl C-Reactive Protein 23.1 H* (<1.0) mg/dL SARS Virus RNA (PCR) Negative (NEGATIVE) 07/03/20 07/03/20 Range/Units 04:33 04:33 WBC 5.43 (3.98-10.04) K/mm3 RBC 3.66 L (3.98-5.22) M/mm3 Hgb 10.8 L D (11.2-15.7) gm/dl Hct 34.4 (34.1-44.9) % MCV 94.0 (79.4-94.8) fl MCH 29.5 (25.6-32.2) pg MCHC 31.4 L (32.2-35.5) g/dl RDW Std Deviation 46.5 H (36.4-46.3) fL Plt Count 215 (182-369) K/mm3 MPV 10.5 (9.4-12.3) fl Neut % (Auto) 56.1 (34.0-71.1) % Lymph % (Auto) 30.9 (19.3-51.7) % Greer % (Auto) 9.8 (4.7-12.5) % Eos % (Auto) 2.8 (0.7-5.8) Baso % (Auto) 0.2 (0.1-1.2) % Neut # (Auto) 3.05 (1.56-6.13) K/mm3 Lymph # (Auto) 1.68 (1.18-3.74) K/mm3 Greer # (Auto) 0.53 H (0.24-0.36) K/mm3 Eos # (Auto) 0.15 (0.04-0.36) K/mm3 Baso # (Auto) 0.01 (0.01-0.08) K/mm3 Neutrophils % (Manual) (40-60) % Band Neutrophils % (0-10) % Lymphocytes % (Manual) (20-40) % Atypical Lymphs % % Monocytes % (Manual) (2-10) % Eosinophils % (Manual) (0.7-5.8) % Basophils % (Manual) (0.1-1.2) Platelet Estimate RBC Morph Comment Sodium 146 H (136-145) mEq/L Potassium 3.8 (3.5-5.1) mEq/L Chloride 109 H (98-107) mEq/L Carbon Dioxide 29 (21-32) mEq/L Anion Gap 11.8 (5-15) BUN 6 L (7-18) mg/dL Creatinine 0.8 (0.55-1.02) mg/dL Est Cr Clr Drug Dosing 61.86 mL/min Estimated GFR (MDRD) > 60 (>60) mL/min BUN/Creatinine Ratio 7.5 L (14-18) Glucose 144 H (74-106) mg/dL Calcium 8.6 (8.5-10.1) mg/dL Magnesium (1.8-2.4) mg/dl C-Reactive Protein (<1.0) mg/dL SARS Virus RNA (PCR) (NEGATIVE) Med Orders - Current: Current Medications Acetaminophen (Tylenol) 975 mg PO Q8H [facility] Last Admin: 07/03/20 04:58 Dose: 975 mg Documented by: Levofloxacin (Levaquin) 750 mg PO Q24H [facility] Metronidazole (Flagyl) 500 mg PO Q8H [facility] Morphine Sulfate (Morphine) 1 mg IVPUSH Q4H PRN PRN Reason: Pain (severe 7-10) Oxycodone HCl (Oxycodone) 5 mg PO Q4H PRN PRN Reason: Pain (moderate 4-6) Last Admin: 07/02/20 22:17 Dose: 5 mg Documented by: Discontinued Medications Dextrose/Sodium Chloride (Dextrose 5%-Normal Saline) 1,000 mls @ 150 mls/hr IV ASDIRECTED [facility] Last Admin: 07/03/20 04:38 Dose: 150 mls/hr Documented by: Levofloxacin/Dextrose 750 mg/ (Premix) 150 mls @ 100 mls/hr IV ONETIME ONE Stop: 07/02/20 13:14 Last Admin: 07/02/20 12:37 Dose: 100 mls/hr Documented by: Metronidazole 500 mg/ Premix 100 mls @ 100 mls/hr IV ONETIME ONE Stop: 07/02/20 12:46 Last Admin: 07/02/20 12:45 Dose: 100 mls/hr Documented by: Levofloxacin/Dextrose 750 mg/ (Premix) 150 mls @ 100 mls/hr IV Q24H [facility] Metronidazole 500 mg/ Premix 100 mls @ 100 mls/hr IV Q8H [facility] Last Admin: 07/03/20 04:37 Dose: 100 mls/hr Documented by:
[2020-07-03] MEDS ORDERED: metroNIDAZOLE 500 MG Tab PO SCH (12:30)
[2020-07-03] MEDS ORDERED: Levofloxacin 750 MG Tab PO SCH (12:30)
[2020-07-03] MEDS ORDERED: Levofloxacin/Dextrose 5%-Water 750 MG in Premix Bag 1 BAG IV SCH (12:30)
== END 2020-07-03 14:29 | disposition home or self-care (01) | DRG 392 ==
LOC: JD.ED 10:38 → JD.MS 13:05
PROVIDERS: ADMIT Surgery; ATTEND Surgery
DX: K57.20 Diverticulitis of large intestine with perforation and abscess without bleeding (principal); E78.00 Pure hypercholesterolemia, unspecified; F41.9 Anxiety disorder, unspecified; Z98.1 Arthrodesis status; E66.9 Obesity, unspecified; Z85.3 Personal history of malignant neoplasm of breast; Z90.49 Acquired absence of other specified parts of digestive tract; Z79.82 Long term (current) use of aspirin; Z79.899 Other long term (current) drug therapy; Z90.710 Acquired absence of both cervix and uterus; Z91.040 Latex allergy status; Z88.0 Allergy status to penicillin; Z88.4 Allergy status to anesthetic agent; Z68.35 Body mass index [BMI] 35.0-35.9, adult; Z20.828 Contact with and (suspected) exposure to other viral communicable diseases
CPT/HCPCS: 36415; 80048; 83735; 85007; 85025; 85027; 86140; 87040; 96361; 96365; 96368; 99284-25; 99285; A9270-GY; J1956; J3490; J7042; U0002

== ENCOUNTER 2020-08-13 09:31 | Inpatient (IN) | payer OTHER ==
[~2020-08-13 09:31] MED LIST: Dexamethasone 4 MG/ML 5 ML MDV ONE; Ketorolac 30 MG/ML SDV ONE; Lactated Ringers 1,000 ML IV SCH; Lidocaine 1% 4 ML ONE; Lidocaine 1%/Sod Bicarbonate in NS 8.4% 1 ML Syringe IDERM PRN; Midazolam 1 MG/ML 2 ML SDV ONE; Ondansetron 4 MG/2 ML SDV ONE; Propofol 200 MG/20 ML SDV ONE; Rocuronium 50 MG/5 ML Vial ONE; Sodium Chloride 0.9% 10 ML Syringe FLUSH PRN; fentaNYL 100 MCG/2 ML SDV ONE
[2020-08-13] MEDS ORDERED: Scopolamine 1.5 MG Transdermal Patch TOP SCH (09:48)
--- NOTE | 2020-08-13 10:17 | PCM.PREANE ---
Preanesthetic Assessment - Procedure Proposed Procedure: diag colonoscopy lap partial colectomy - Anesthesia/Transfusion/Family Hx Anesthesia History: Prior Anesthesia Reaction Type of Anesthesia Reaction: Excessive Nausea/Vomiting Transfusion History: No Prior Transfusion(s) - Review of Systems General: No Symptoms Pulmonary: No Symptoms Cardiovascular: No Symptoms Gastrointestinal: Diarrhea Neurological: No Symptoms - Physical Assessment NPO Status Date: 08/12/20 NPO Status Time: 23:30 Vital Signs: 139/80 92 95% 16 97.5 Height: 53 ft Weight: 89.2 kg ASA Class: 2 Mental Status: Alert & Oriented x3 Airway Class: Mallampati = 2 Dentition: Reports: Normal Dentition Thyro-Mental Finger Breadths: 3 Mouth Opening Finger Breadths: 3 ROM/Head Extension: Full Lungs: Clear to Auscultation, Normal Respiratory Effort Cardiovascular: Regular Rate, Regular Rhythm - Allergies Allergies/Adverse Reactions: Allergies Allergy/AdvReac Type Severity Reaction Status Date / Time latex Allergy Hives Verified 08/13/20 10:08 amoxicillin [From Augmentin] AdvReac Nausea and Verified 08/13/20 10:08 Vomiting Anesthetics - Belia Type- AdvReac Nausea and Verified 08/13/20 10:08 Parabens Vomiting [Anesthetics - Belia Type] clavulanic acid AdvReac Nausea and Verified 08/13/20 10:08 [From Augmentin] Vomiting - Blood Blood Available: No - Acknowledgements Anesthesia Type Planned: General Anesthesia Pt an Appropriate Candidate for the Planned Anesthesia: Yes Alternatives and Risks of Anesthesia Discussed w Pt/Guardian: Yes Pt/Guardian Understands and Agrees with Anesthesia Plan: Yes PreAnesthesia Questionnaire HEENT History: Reports: Cataract Cardiovascular History: Reports: High Cholesterol Respiratory History: Reports: Sleep Apnea Gastrointestinal History: Reports: Diverticulosis, GERD Genitourinary History: Reports: None 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: Musculoskeletal History: Reports: Back Pain, Chronic, Osteoarthritis, Other (See Below) Other Musculoskeletal History: 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; fusion of lowest 2 vertebrae Neurological History: Reports: None Psychiatric History: Reports: Anxiety Endocrine/Metabolic History: Reports: Obesity/BMI 30+ Hematologic History: Reports: Anesthesia Reaction Immunologic History: Reports: None Oncologic (Cancer) History: Reports: Breast Dermatologic History: Reports: Other (See Below) Other Dermatologic History: lumpectomy - Infectious Disease History Infectious Disease History: Reports: None - Past Surgical History HEENT Surgical History: Reports: Other (See Below) Other HEENT Surgeries/Procedures: wisdom teeth Cardiovascular Surgical History: Reports: None Respiratory Surgical History: Reports: None GI Surgical History: Reports: Appendectomy, Colonoscopy, Other (See Below) Other GI Surgeries/Procedures: laparotomy for removal of sacrococcygeal tumor Female Surgical History: Reports: Section, Hysterectomy, Oophorectomy Male Surgical History: Reports: None Endocrine Surgical History: Reports: None Neurological Surgical History: Reports: Lumbar Spine, Spinal Fusion Musculoskeletal Surgical History: Oncologic Surgical History: Reports: Biopsy of Breast, Lumpectomy Dermatological Surgical History: Reports: None - SUBSTANCE USE Tobacco Use Status *Q: Never Tobacco User Tobacco Use Within Last Twelve Months: No Second Hand Smoke Exposure: No Days Per Week of Alcohol Use: 0 Recreational Drug Use History: No - HOME MEDS Home Medications: Home Meds Pravastatin [Pravachol] 20 mg PO DAILY 12/31/19 [History] - CURRENT (IN HOUSE) MEDS Current Meds: Current Medications Lactated Ringer's (Ringers, Lactated) 1,000 mls @ 125 mls/hr IV ASDIRECTED GELY Stop: 08/13/20 23:00 Lidocaine/Sodium Bicarbonate (Buffered Lidocaine 1% In Ns 8.4%) 0.25 ml IDERM ONETIME PRN PRN Reason: Prior to IV Start Stop: 08/13/20 18:00 Scopolamine (Transderm-Scop) 1.5 mg TOP ONETIME GELY Stop: 08/13/20 13:00 Last Admin: 08/13/20 10:11 Dose: 1.5 mg Documented by: Sodium Chloride (Saline Flush) 10 ml FLUSH ASDIRECTED PRN PRN Reason: Keep Vein Open Stop: 08/13/20 18:00 Discontinued Medications Dexamethasone (Dexamethasone) Confirm Administered Dose 20 mg .ROUTE .STK-MED ONE Stop: 08/13/20 09:15 Fentanyl (Sublimaze) Confirm Administered Dose 100 mcg .ROUTE .STK-MED ONE Stop: 08/13/20 09:14 Fentanyl (Sublimaze) Confirm Administered Dose 100 mcg .ROUTE .STK-MED ONE Stop: 08/13/20 09:17 Lidocaine HCl (Xylocaine-Mpf 1%) Confirm Administered Dose 4 mls @ as directed .ROUTE .STK-MED ONE Stop: 08/13/20 09:15 Ketorolac Tromethamine (Toradol) Confirm Administered Dose 30 mg .ROUTE .STK-MED ONE Stop: 08/13/20 09:15 Midazolam HCl (Versed 1 Mg/Ml) Confirm Administered Dose 2 mg .ROUTE .STK-MED ONE Stop: 08/13/20 09:14 Ondansetron HCl (Zofran) Confirm Administered Dose 4 mg .ROUTE .STK-MED ONE Stop: 08/13/20 09:15 Propofol (Diprivan 20 Ml) Confirm Administered Dose 400 mg .ROUTE .STK-MED ONE Stop: 08/13/20 09:13 Rocuronium [place] (Zemuron) Confirm Administered Dose 50 mg .ROUTE .STK-MED ONE Stop: 08/13/20 09:15
[2020-08-13] MEDS ORDERED: Bupivacaine 0.5%/EPINEPHrine 1:200,000 50 ML MDV ONE ×2 (10:23→10:30)
[2020-08-13] MEDS ORDERED: Succinylcholine/Sod PF 100 MG/5 ML SYRINGE IV ONE ×2 (11:27)
[2020-08-13] MEDS ORDERED: Lactated Ringers 1,000 ML ONE ×3 (11:52→15:35)
[2020-08-13] MEDS ORDERED: Albuterol 6.7 GM Inhaler INH ONE (11:57)
[2020-08-13] MEDS ORDERED: ePHEDrine Sulfate/0.9% NaCl/Pf 25 MG/5 ML SYRINGE IV ONE (12:17)
[2020-08-13] MEDS ORDERED: HYDROmorphone 0.5 MG/0.5 ML Syringe ONE ×4 (12:17→14:58)
[2020-08-13] MEDS ORDERED: Ketamine 500 mg/10 ML MDV ONE (12:56)
[2020-08-13] MEDS ORDERED: Rocuronium 50 MG/5 ML Vial ONE (14:13)
[2020-08-13] MEDS ORDERED: Ondansetron 4 MG/2 ML SDV ONE (15:32)
--- NOTE | 2020-08-13 16:10 | PCM.POSTAN ---
POST ANESTHESIA ASSESSMENT - MENTAL STATUS Mental Status: Somnolent - VITAL SIGNS Vital Signs: Last Vital Signs Temp 97.5 F 08/13/20 09:45 Pulse 92 08/13/20 09:45 Resp 16 08/13/20 09:45 BP 139/80 08/13/20 09:45 Pulse Ox 95 08/13/20 09:45 1600 136/820 11 108 98.6 92% - RESPIRATORY Respiratory Status: Respiratory Rate WNL, Airway Patent, O2 Saturation Stable, Supplemental Oxygen - CARDIOVASCULAR CV Status: Pulse Rate WNL, Blood Pressure Stable - GASTROINTESTINAL GI Status: No Symptoms - PAIN Pain Score: 0 (sleepy) - POST OP HYDRATION Hydration Status: Adequate & Stable
--- NOTE | 2020-08-13 16:11 | PCM.PRNOTE ---
- Free Text/Narrative Note: Date:
--- NOTE | 2020-08-13 16:33 | PCM.PRNOTE ---
- Free Text/Narrative Note: Date: 08/13/2020 Operation: diagnostic colonoscopy followed by laparoscopic sigmoid colectomy with stapled colorectal anastomosis Indication: recurrent diverticulitis Surgeon: Mayur Stoner MD Findings: extensive diverticulitis throughout colon. Left ureter was identified and preserved during dissection. A roughly 30 cm specimen of sigmoid colon was resected. A 25 mm stapled end to end anastomosis was created without undue tension and leak test was negative. Detailed Report: Time out was performed. General endotracheal anesthesia was initiated. The patient was placed in low lithotomy position. First, colonoscopy was performed. Aside from extensive diverticular disease, no abnormalities were noted. Next, a quintanilla catheter was placed and the abdomen and perineum prepped and draped in sterile fashion. A Veress needle was placed at the LUQ to establish pneumoperitoneum. A 5 mm bladed port was then placed at the RUQ after insufflation reached a pressure of 15 mm Hg. A 5 mm 30 degree laparoscope was inserted. The Veress insertion appeared to have not caused any inadevertent injury and was removed. A 12 mm port was placed at the umbilicus and another 5 mm port at the right lower quadrant. There was some adhesions to the lower midline which were freed with the Ligasure. Next, the sigmoid colon was tented up and pulled toward the pelvis, putting tension on the sigmoid mesentery and vascular supply. A plane of dissection was developed between the mesenteric vessels and the retroperitoneum. Dissection was tedious due to patient habitus. As a result, the lower midline was opened and a gel port for hand-assist was placed. There were adhesions between the sigmoid colon and the left pelvic brim and anterior lower abdomen. Careful dissection ensued. The left ureter was identified and protected. Lateral attachments were divided along the White line of [place]. A point of healthy bowel was identified at the distal descending colon. This area was denuded of fat and the colon divided transversely with a powered 60 mm stapler. The sigmoid colon was then placed on traction cephalad, and dissection carried down along the superior mesorectum. Once the superior part of the rectum was cleared, the gel port was removed and the Contour stapler was used to divide at the superior aspect of the rectum transversely. The specimen was then freed and passed off. Additional dissection of lateral attachments and omental attachments near the splenic flexure was done in order to bring the colon down to the pelvis without tension. Next, the colon staple line was opened, and the anvil for the EEA stapler was placed into the lumen and secured with a pursestring PDS stitch. This was placed back in the abdomen and laparoscopy was restarted. The stapler was passed transanally up to the staple line and the stapler was opened, with the spike coming out at the rectal staple line. The stapler and anvil were mated with hand assistance. Some additional dissection was done at this time to ensure no undue tension on the colon. The stapler was then brought together, closed and fired. Two intact rings of tissue were retrieved from the stapler. Next, fluid was instilled in the pelvis and a rigid sigmoidoscope was placed to insufflate at the staple line. No bubble leak was noted. The scope was removed, and intra-abdominal fluid suctioned up. The larger port site was closed with 0 vicryl suture using the laparoscopic suture passer. Pneumoperitoneum was then released and ports removed. The midline fascia was closed with running 1 PDS suture. Skin was closed at all sites with interrupted 3-0 vicryl deep dermal sutures and dressed with mastisol and steri- strips. The patient tolerated the procedure well.
[2020-08-13] MEDS ORDERED: HYDROmorphone 0.5 MG/0.5 ML Syringe IVPUSH PRN (16:37)
[2020-08-13] MEDS ORDERED: fentaNYL 100 MCG/2 ML SDV IVPUSH PRN (16:37)
[2020-08-13] MEDS ORDERED: Ondansetron 4 MG/2 ML SDV IVPUSH PRN (16:37)
[2020-08-13] MEDS: Heparin Sodium 5,000 Units/ML Vial SUBCUT SCH (17:50)
[2020-08-13] MEDS: Acetaminophen 325 MG Tab PO SCH (17:50)
[2020-08-13] MEDS: HYDROmorphone 0.5 MG/0.5 ML Syringe IVPUSH PRN ×2 (17:51→22:15)
[2020-08-13] MEDS: oxyCODONE 5 MG Tab PO PRN (19:30)
[2020-08-13] MEDS: Lactated Ringers 1,000 ML IV SCH (22:15)
[2020-08-14] MEDS: Heparin Sodium 5,000 Units/ML Vial SUBCUT SCH ×3 (00:48→16:17)
[2020-08-14] MEDS: oxyCODONE 5 MG Tab PO PRN ×4 (00:49→16:18)
[2020-08-14] MEDS: Acetaminophen 325 MG Tab PO SCH ×3 (00:49→16:17)
[2020-08-14] MEDS: Lactated Ringers 1,000 ML IV SCH ×2 (07:05→17:21)
[2020-08-14] MEDS ORDERED: Ondansetron 4 MG in Sodium Chloride 0.9% 50 ML IV PRN (09:37)
[2020-08-14] MEDS ORDERED: Ondansetron 4 MG/2 ML SDV IVPUSH PRN (09:39)
--- NOTE | 2020-08-14 11:07 | PCM48HPAN ---
Post Anesthesia Note - EVALUATION WITHIN 48HRS OF ANESTHETIC Vital Signs in Normal Range: Yes Patient Participated in Evaluation: Yes Respiratory Function Stable: Yes (On 1L /NC) Airway Patent: Yes Cardiovascular Function Stable: Yes Hydration Status Stable: Yes Pain Control Satisfactory: Yes Nausea and Vomiting Control Satisfactory: Yes Mental Status Recovered: Yes Vital Signs: Last Vital Signs Temp 36.7 C 08/14/20 08:04 Pulse 105 H 08/14/20 08:04 Resp 16 08/14/20 08:04 BP 127/68 08/14/20 08:04 Pulse Ox 93 L 08/14/20 09:53
--- NOTE | 2020-08-14 15:44 | PCM.SN.2 ---
- Free Text/Narrative Note: S/p elective laparoscopic assisted sigmoid colectomy for recurrent diverticulitis 08/13/2020 S: some abdominal pain and soreness. No flatus. Tolerating clears. O: AF- sinus tachycardia stable at 100-105 overnight, improved this morning to 80s. Labs this morning are reassuring. Awake and alert, no distress abdomen soft, appropriately tender quintanilla in place, good urine output A: Doing well s/p sigmoid colectomy yesterday P: -continue pain regimen of dilaudid, oxycodone prn, scheduled tylenol -IS, OOB, wean O2 as tolerated -LR @ 100 cc/hr -clear liquid diet, await return of bowel function -remove quintanilla catheter, f/u trial of void -heparin, SCD for dvt ppx
[2020-08-14] MEDS: HYDROmorphone 0.5 MG/0.5 ML Syringe IVPUSH PRN (18:30)
[2020-08-15] MEDS: Heparin Sodium 5,000 Units/ML Vial SUBCUT SCH ×4 (00:57→23:30)
[2020-08-15] MEDS: Acetaminophen 325 MG Tab PO SCH ×4 (00:57→23:31)
[2020-08-15] MEDS: oxyCODONE 5 MG Tab PO PRN ×4 (00:58→22:24)
[2020-08-15] MEDS: Lactated Ringers 1,000 ML IV SCH (01:58)
[2020-08-15] MEDS: Polyethylene Glycol 3350 Powder 17 GM Packet PO SCH (10:47)
[2020-08-15] MEDS: Docusate Sodium 100 MG Cap PO SCH (10:47)
--- NOTE | 2020-08-15 16:40 | PCM.SN.2 ---
- Free Text/Narrative Note: S/p elective laparoscopic assisted sigmoid colectomy for recurrent diverticulitis 08/13/2020 S: Reports some flatus. No BM. Tolerating clears but not much appetite. Pain improved. O: AF- VSS Awake and alert, no distress abdomen soft, appropriately tender Incision sites clean, dry, intact A: Doing well s/p sigmoid colectomy, POD #2 P: -continue pain regimen of dilaudid, oxycodone prn, scheduled tylenol -IS, OOB, wean O2 as tolerated -ella -regular diet as tolerated, added colace -repeat labs in AM -heparin, SCD for dvt ppx
[2020-08-16] MEDS: Docusate Sodium 100 MG Cap PO SCH ×2 (09:17→21:27)
[2020-08-16] MEDS: Acetaminophen 325 MG Tab PO SCH ×2 (09:17→17:02)
[2020-08-16] MEDS: Polyethylene Glycol 3350 Powder 17 GM Packet PO SCH (09:18)
[2020-08-16] MEDS: Heparin Sodium 5,000 Units/ML Vial SUBCUT SCH ×2 (09:18→17:02)
--- NOTE | 2020-08-16 09:18 | PCM.HP.2 ---
H&P History of Present Illness - General Date of Service: 08/13/20 Admit Problem/Dx: Admission Diagnosis/Problem Admission Diagnosis/Problem Diverticulitis recurrent sigmoid diverticulitis Source of Information: Patient History Limitations: Reports: No Limitations - History of Present Illness Initial Comments - Free Text/Narative: This patient presents for elective laparoscopic sigmoid colectomy for recurrent diverticulitis, as documented in the clinic note from a few weeks ago. Abdomen Pain Score (Numeric/FACES): 8 - Related Data Allergies/Adverse Reactions: Allergies Allergy/AdvReac Type Severity Reaction Status Date / Time latex Allergy Hives Verified 08/14/20 08:17 amoxicillin [From Augmentin] AdvReac Nausea and Verified 08/14/20 08:17 Vomiting Anesthetics - Belia Type- AdvReac Nausea and Verified 08/14/20 08:17 Parabens Vomiting [Anesthetics - Belia Type] clavulanic acid AdvReac Nausea and Verified 08/14/20 08:17 [From Augmentin] Vomiting Home Medications: Home Meds Pravastatin [Pravachol] 20 mg PO DAILY 12/31/19 [History] Past Medical History HEENT History: Reports: Cataract Cardiovascular History: Reports: High Cholesterol Respiratory History: Reports: Sleep Apnea Gastrointestinal History: Reports: Diverticulosis, GERD Genitourinary History: Reports: UTI, 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, Musculoskeletal History: Reports: Back Pain, Chronic, Osteoarthritis, Other (See Below) Other Musculoskeletal History: 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; fusion of lowest 2 vertebrae Neurological History: Reports: Migraines Psychiatric History: Reports: Anxiety Endocrine/Metabolic History: Reports: Obesity/BMI 30+ Hematologic History: Reports: Anesthesia Reaction Immunologic History: Reports: None Oncologic (Cancer) History: Reports: Breast Dermatologic History: Reports: Other (See Below) Other Dermatologic History: lumpectomy - Infectious Disease History Infectious Disease History: Reports: Chicken Pox, Measles - Past Surgical History HEENT Surgical History: Reports: Other (See Below) Other HEENT Surgeries/Procedures: wisdom teeth Cardiovascular Surgical History: Reports: None Respiratory Surgical History: Reports: None GI Surgical History: Reports: Appendectomy, Colonoscopy, Other (See Below) Other GI Surgeries/Procedures: laparotomy for removal of sacrococcygeal tumor Female Surgical History: Reports: Hysterectomy, Oophorectomy Endocrine Surgical History: Reports: None Neurological Surgical History: Reports: Lumbar Spine, Spinal Fusion Oncologic Surgical History: Reports: Biopsy of Breast, Lumpectomy Other Oncologic Surgeries/Procedures: 2012 Dermatological Surgical History: Reports: None Social & Family History - Family History Family Medical History: Noncontributory - Tobacco Use Tobacco Use Status *Q: Never Tobacco User Second Hand Smoke Exposure: No - Caffeine Use Caffeine Use: Reports: Coffee, Soda, Tea - Alcohol Use Days Per Week of Alcohol Use: 0 - Recreational Drug Use Recreational Drug Use: No Drug Use in Last 12 Months: No - Living Situation & Occupation Living situation: Reports: Occupation: Employed H&P Review of Systems - Review of Systems: Review Of Systems: See Below General: Reports: No Symptoms HEENT: Reports: No Symptoms Pulmonary: Reports: No Symptoms Cardiovascular: Reports: No Symptoms Gastrointestinal: Reports: No Symptoms Genitourinary: Reports: No Symptoms Musculoskeletal: Reports: No Symptoms Skin: Reports: No Symptoms Psychiatric: Reports: No Symptoms Neurological: Reports: No Symptoms Hematologic/Lymphatic: Reports: No Symptoms Immunologic: Reports: No Symptoms Exam - Exam Exam: See Below - Vital Signs Vital Signs: Last Vital Signs Temp 36.7 C 08/16/20 05:15 Pulse 84 08/16/20 05:15 Resp 18 08/16/20 05:15 BP 145/77 H 08/16/20 05:15 Pulse Ox 94 L 08/16/20 05:15 Weight: 90.492 kg - Exam General: Alert, Oriented, Cooperative HEENT: Conjunctiva Clear Neck: Supple Lungs: Clear to Auscultation Cardiovascular: Regular Rate GI/Abdominal Exam: Soft Extremities: Normal Inspection Skin: Warm, Dry Neuro Extensive - Mental Status: Alert, Oriented x3 Psychiatric: Normal Mood - Patient Data Lab Results Last 24 hrs: Laboratory Results - last 24 hr 08/16/20 08/16/20 Range/Units 06:00 06:00 WBC 6.68 (3.98-10.04) K/mm3 RBC 3.61 L (3.98-5.22) M/mm3 Hgb 10.6 L (11.2-15.7) gm/dl Hct 33.8 L (34.1-44.9) % MCV 93.6 (79.4-94.8) fl MCH 29.4 (25.6-32.2) pg MCHC 31.4 L (32.2-35.5) g/dl RDW Std Deviation 44.7 (36.4-46.3) fL Plt Count 230 (182-369) K/mm3 MPV 10.1 (9.4-12.3) fl Neut % (Auto) 77.6 H (34.0-71.1) % Lymph % (Auto) 14.4 L (19.3-51.7) % Hamilton % (Auto) 4.9 (4.7-12.5) % Eos % (Auto) 2.4 (0.7-5.8) Baso % (Auto) 0.3 (0.1-1.2) % Neut # (Auto) 5.18 (1.56-6.13) K/mm3 Lymph # (Auto) 0.96 L (1.18-3.74) K/mm3 Hamilton # (Auto) 0.33 (0.24-0.36) K/mm3 Eos # (Auto) 0.16 (0.04-0.36) K/mm3 Baso # (Auto) 0.02 (0.01-0.08) K/mm3 Sodium 137 (136-145) mEq/L Potassium 3.5 (3.5-5.1) mEq/L Chloride 100 (98-107) mEq/L Carbon Dioxide 25 (21-32) mEq/L Anion Gap 15.5 H (5-15) BUN 5 L (7-18) mg/dL Creatinine 0.6 (0.55-1.02) mg/dL Est Cr Clr Drug Dosing 82.48 mL/min Estimated GFR (MDRD) > 60 (>60) mL/min BUN/Creatinine Ratio 8.3 L (14-18) Glucose 105 (74-106) mg/dL Calcium 8.6 (8.5-10.1) mg/dL Result Diagrams: 08/16/20 06:00 08/16/20 06:00 Sepsis Event Note - Evaluation Sepsis Screening Result: No Definite Risk - Focused Exam Vital Signs: Vital Signs Temp Pulse Resp BP Pulse Ox 08/16/20 05:15 36.7 C 84 18 145/77 H 94 L 08/15/20 23:39 91 92 L Problem List Initiated/Reviewed/Updated: Yes Orders Last 24hrs: Active Orders 24 hr Category Date Time Status Regular Diet [DIET] Diet 08/15/20 Lunch Active Docusate Sodium [Colace] Med 08/15/20 09:45 Active 100 mg PO DAILY polyethylene glycoL 3350 [MiraLAX] Med 08/15/20 09:45 Active 17 gm PO DAILY Medication Orders Acetaminophen (Tylenol) 975 mg PO Q8H [facility] Last Admin: 08/15/20 23:31 Dose: 975 mg Documented by: Admin: 08/15/20 16:48 Dose: 975 mg Documented by: Admin: 08/15/20 07:57 Dose: 975 mg Documented by: Admin: 08/15/20 00:57 Dose: 975 mg Documented by: Admin: 08/14/20 16:17 Dose: 975 mg Documented by: Admin: 08/14/20 07:05 Dose: 975 mg Documented by: Admin: 08/14/20 00:49 Dose: 975 mg Documented by: Admin: 08/13/20 17:50 Dose: 975 mg Documented by: YENY Docusate Sodium (Colace) 100 mg PO DAILY [facility] Last Admin: 08/15/20 10:47 Dose: 100 mg Documented by: KAR Heparin Sodium (Porcine) (Heparin Sodium) 5,000 units SUBCUT Q8H [facility] Last Admin: 08/15/20 23:30 Dose: 5,000 units Documented by: Admin: 08/15/20 16:49 Dose: 5,000 units Documented by: Admin: 08/15/20 07:59 Dose: 5,000 units Documented by: Admin: 08/15/20 00:57 Dose: 5,000 units Documented by: Admin: 08/14/20 16:17 Dose: 5,000 units Documented by: Admin: 08/14/20 09:23 Dose: 5,000 units Documented by: Admin: 08/14/20 00:48 Dose: 5,000 units Documented by: Admin: 08/13/20 17:50 Dose: 5,000 units Documented by: YENY Hydromorphone HCl (Dilaudid) 0.5 mg IVPUSH Q3H PRN PRN Reason: Pain Last Admin: 08/14/20 18:30 Dose: 0.5 mg Documented by: Admin: 08/13/20 22:15 Dose: 0.5 mg Documented by: Admin: 08/13/20 17:51 Dose: 0.5 mg Documented by: YENY Ondansetron HCl (Zofran) 4 mg IVPUSH Q6H PRN PRN Reason: NAUSEA Oxycodone HCl (Oxycodone) 5 mg PO Q4H PRN PRN Reason: Pain (moderate 4-6) Last Admin: 08/15/20 22:24 Dose: 5 mg Documented by: Admin: 08/15/20 13:33 Dose: 5 mg Documented by: Admin: 08/15/20 07:58 Dose: 5 mg Documented by: Admin: 08/15/20 00:58 Dose: 5 mg Documented by: Admin: 08/14/20 16:18 Dose: 5 mg Documented by: Admin: 08/14/20 10:56 Dose: 5 mg Documented by: Admin: 08/14/20 07:06 Dose: 5 mg Documented by: Admin: 08/14/20 00:49 Dose: 5 mg Documented by: Admin: 08/13/20 19:30 Dose: 5 mg Documented by: JACKELYN Polyethylene Glycol (Miralax) 17 gm PO DAILY [facility] Last Admin: 08/15/20 10:47 Dose: 17 gm Documented by: KAR Assessment/Plan Comment:: Recurrent diverticulitis. Plan for diagnostic colonoscopy followed by sigmoid resection today. - Mortality Measure Prognosis:: Good
--- NOTE | 2020-08-16 09:21 | PCM.SN.2 ---
- Free Text/Narrative Note: S/p elective laparoscopic assisted sigmoid colectomy for recurrent diverticulitis 08/13/2020 S: Reports lots of flatus. No BM. Tolerating diet. Pain improved. O: AF- VSS repeat labs this morning are reassuring Awake and alert, no distress, sitting up in chair abdomen soft, appropriately tender Incision sites clean, dry, intact A: Doing well s/p sigmoid colectomy, POD #3 P: -continue pain regimen of dilaudid, oxycodone prn, scheduled tylenol -IS, OOB, wean O2 as tolerated -medlocked -regular diet, added colace -heparin, SCD for dvt ppx -anticipate discharge to home tomorrow once patient has BM
[2020-08-16] MEDS: oxyCODONE 5 MG Tab PO PRN (21:27)
[2020-08-17] MEDS: Acetaminophen 325 MG Tab PO SCH ×2 (00:36→08:23)
[2020-08-17] MEDS: Heparin Sodium 5,000 Units/ML Vial SUBCUT SCH ×2 (00:37→08:24)
[2020-08-17] MEDS: Docusate Sodium 100 MG Cap PO SCH (08:24)
[2020-08-17 08:32] VITALS: BP 124/81; PULSE 70
--- NOTE | 2020-08-17 08:34 | PCM.DCSUM1 ---
Discharge Summary - Hospital Course Free Text/Narrative:: Presented for elective sigmoid colectomy given history of recurrent episodes of diverticulitis. The operation was performed on 08/13. Postoperatively, the patient did well. She had minimal pain, and was able to tolerate a diet. She began passing flatus on post-op day 2. She did well with ambulation and voiding, and on POD 3 she passed a small bloody bowel movement. On the morning of post op day 4, she appeared to be doing very well, still passing a good amount of flatus. Her incisions were inspected and appeared to be intact. She was deemed fit for discharge on POD 4. Diagnosis: Stroke: No - Discharge Data Discharge Date: 08/17/20 Discharge Disposition: Home, Self-Care 01 Condition: Good - Referral to Home Health Primary Care Physician: Teofilo Mcfadden MD - Patient Summary/Data Operative Procedure(s) Performed: laparoscopic assisted sigmoid colectomy with colorectal anastomosis - Patient Instructions Diet: Usual Diet as Tolerated Activity: No Lifting Over 10 Pounds Showering/Bathing: February Shower Wound/Incision Care: Keep Operative Site/Wound Site Clean and Dry Notify Provider of: Fever, Increased Pain, Swelling and Redness, Drainage, Nausea and/or Vomiting - Discharge Plan *PRESCRIPTION DRUG MONITORING PROGRAM REVIEWED*: Not Applicable *COPY OF PRESCRIPTION DRUG MONITORING REPORT IN PATIENT TEJINDER: Not Applicable Home Medications: Home Meds Pravastatin [Pravachol] 20 mg PO DAILY 12/31/19 [History] Oxygen Therapy Mode: Room Air Referrals: Teofilo Mcfadden MD [Primary Care Provider] - - Discharge Summary/Plan Comment DC Time >30 min.: No - Patient Data Vitals - Most Recent: Last Vital Signs Temp 36.6 C 08/17/20 04:20 Pulse 77 08/17/20 04:20 Resp 20 08/17/20 04:20 BP 126/74 08/17/20 04:20 Pulse Ox 92 L 08/17/20 04:20 Weight - Most Recent: 89.494 kg I&O - Last 24 hours: Intake & Output 08/16/20 08/17/20 08/17/20 22:59 06:59 14:59 Intake Total 1180 320 Output Total 650 1200 Balance 530 -880 Med Orders - Current: Current Medications Acetaminophen (Tylenol) 975 mg PO Q8H [facility] Last Admin: 08/17/20 08:23 Dose: 975 mg Documented by: Docusate Sodium (Colace) 100 mg PO BID [facility] Last Admin: 08/17/20 08:24 Dose: 100 mg Documented by: Heparin Sodium (Porcine) (Heparin Sodium) 5,000 units SUBCUT Q8H [facility] Last Admin: 08/17/20 08:24 Dose: 5,000 units Documented by: Hydromorphone HCl (Dilaudid) 0.5 mg IVPUSH Q3H PRN PRN Reason: Pain Last Admin: 08/14/20 18:30 Dose: 0.5 mg Documented by: Ondansetron HCl (Zofran) 4 mg IVPUSH Q6H PRN PRN Reason: NAUSEA Oxycodone HCl (Oxycodone) 5 mg PO Q4H PRN PRN Reason: Pain (moderate 4-6) Last Admin: 08/16/20 21:27 Dose: 5 mg Documented by: Discontinued Medications Albuterol (Proventil Hfa) Confirm Administered Dose 6.7 gm INH .STK-MED ONE Stop: 08/13/20 11:58 Bupivacaine HCl/Epinephrine Bitart (Marcaine 0.5%/Epinephrine 1:200,000) Confirm Administered Dose 50 ml .ROUTE .STK-MED ONE Stop: 08/13/20 10:24 Bupivacaine HCl/Epinephrine Bitart (Marcaine 0.5%/Epinephrine 1:200,000) Confirm Administered Dose 50 ml .ROUTE .STK-MED ONE Stop: 08/13/20 10:31 Last Admin: 08/13/20 13:10 Dose: 26 ml Documented by: Dexamethasone (Dexamethasone) Confirm Administered Dose 20 mg .ROUTE .STK-MED ONE Stop: 08/13/20 09:15 Docusate Sodium (Colace) 100 mg PO DAILY [facility] Last Admin: 08/16/20 09:17 Dose: 100 mg Documented by: Ephedrine Sulfate (Ephedrine 25 Mg/5 Ml Syringe) Confirm Administered Dose 25 mg IV .STK-MED ONE Stop: 08/13/20 12:18 Fentanyl (Sublimaze) Confirm Administered Dose 100 mcg .ROUTE .STK-MED ONE Stop: 08/13/20 09:14 Fentanyl (Sublimaze) Confirm Administered Dose 100 mcg .ROUTE .STK-MED ONE Stop: 08/13/20 09:17 Fentanyl (Sublimaze) 50 mcg IVPUSH Q5M PRN PRN Reason: Pain Stop: 08/13/20 18:30 Last Admin: 08/13/20 16:50 Dose: 50 mcg Documented by: Glycopyrrolate (Robinul) Confirm Administered Dose 0.4 mg .ROUTE .STK-MED ONE Stop: 08/13/20 11:55 Glycopyrrolate (Robinul) Confirm Administered Dose 0.4 mg .ROUTE .STK-MED ONE Stop: 08/13/20 13:08 Hydromorphone HCl (Dilaudid) Confirm Administered Dose 0.5 mg .ROUTE .STK-MED ONE Stop: 08/13/20 12:18 Hydromorphone HCl (Dilaudid) Confirm Administered Dose 0.5 mg .ROUTE .STK-MED ONE Stop: 08/13/20 12:48 Hydromorphone HCl (Dilaudid) Confirm Administered Dose 0.5 mg .ROUTE .STK-MED ONE Stop: 08/13/20 14:20 Hydromorphone HCl (Dilaudid) Confirm Administered Dose 0.5 mg .ROUTE .STK-MED ONE Stop: 08/13/20 14:59 Hydromorphone HCl (Dilaudid) 0.5 mg IVPUSH Q10M PRN PRN Reason: Pain (severe 7-10) Stop: 08/13/20 18:30 Lactated Ringer's (Ringers, Lactated) 1,000 mls @ 125 mls/hr IV ASDIRECTED [facility] Stop: 08/13/20 23:00 Last Admin: 08/13/20 10:15 Dose: 125 mls/hr Documented by: Lidocaine HCl (Xylocaine-Mpf 1%) Confirm Administered Dose 4 mls @ as directed .ROUTE .STK-MED ONE Stop: 08/13/20 09:15 Lactated Ringer's (Ringers, Lactated) Confirm Administered Dose 1,000 mls @ as directed .ROUTE .STK-MED ONE Stop: 08/13/20 11:53 Cefoxitin Sodium (Mefoxin In Dextrose,Iso-Osm 2 Gm/50 Ml) Confirm Administered Dose 50 mls @ as directed .ROUTE .STK-MED ONE Stop: 08/13/20 14:29 Lactated Ringer's (Ringers, Lactated) Confirm Administered Dose 1,000 mls @ as directed .ROUTE .STK-MED ONE Stop: 08/13/20 14:38 Cefoxitin Sodium (Mefoxin In Dextrose,Iso-Osm 2 Gm/50 Ml) Confirm Administered Dose 50 mls @ as directed .ROUTE .STK-MED ONE Stop: 08/13/20 14:57 Lactated Ringer's (Ringers, Lactated) Confirm Administered Dose 1,000 mls @ as directed .ROUTE .STK-MED ONE Stop: 08/13/20 15:36 Lactated Ringer's (Ringers, Lactated) 1,000 mls @ 100 mls/hr IV ASDIRECTED [facility] Last Admin: 08/15/20 01:58 Dose: 100 mls/hr Documented by: Ondansetron HCl 4 mg/ Sodium (Chloride) 52 mls @ 100 mls/hr IV Q6H PRN PRN Reason: Nausea Ketamine HCl (Ketalar) Confirm Administered Dose 500 mg .ROUTE .STK-MED ONE Stop: 08/13/20 12:57 Ketorolac Tromethamine (Toradol) Confirm Administered Dose 30 mg .ROUTE .STK-MED ONE Stop: 08/13/20 09:15 Lidocaine/Sodium Bicarbonate (Buffered Lidocaine 1% In Ns 8.4%) 0.25 ml IDERM ONETIME PRN PRN Reason: Prior to IV Start Stop: 08/13/20 18:00 Last Admin: 08/13/20 10:14 Dose: 0.25 ml Documented by: Midazolam HCl (Versed 1 Mg/Ml) Confirm Administered Dose 2 mg .ROUTE .STK-MED ONE Stop: 08/13/20 09:14 Miscellaneous Medication (Phenylephrine 1 Mg/10 Ml-Ns) Confirm Administered Dose 1 mg .ROUTE .STK-MED ONE Stop: 08/13/20 11:57 Neostigmine Methylsulfate (Neostigmine Methylsulfate) Confirm Administered Dose 5 mg .ROUTE .STK-MED ONE Stop: 08/13/20 11:55 Ondansetron HCl (Zofran) Confirm Administered Dose 4 mg .ROUTE .STK-MED ONE Stop: 08/13/20 09:15 Ondansetron HCl (Zofran) Confirm Administered Dose 4 mg .ROUTE .STK-MED ONE Stop: 08/13/20 15:33 Ondansetron HCl (Zofran) 4 mg IVPUSH ONETIME PRN PRN Reason: Nausea/Vomiting Stop: 08/13/20 18:30 Polyethylene Glycol (Miralax) 17 gm PO DAILY [facility] Last Admin: 08/16/20 09:18 Dose: Not Given Documented by: Propofol (Diprivan 20 Ml) Confirm Administered Dose 400 mg .ROUTE .STK-MED ONE Stop: 08/13/20 09:13 Rocuronium Concepcion (Zemuron) Confirm Administered Dose 50 mg .ROUTE .STK-MED ONE Stop: 08/13/20 09:15 Rocuronium Concepcion (Zemuron) Confirm Administered Dose 50 mg .ROUTE .STK-MED ONE Stop: 08/13/20 14:14 Scopolamine (Transderm-Scop) 1.5 mg TOP ONETIME [facility] Stop: 08/13/20 13:00 Last Admin: 08/13/20 10:11 Dose: 1.5 mg Documented by: Sodium Chloride (Saline Flush) 10 ml FLUSH ASDIRECTED PRN PRN Reason: Keep Vein Open Stop: 08/13/20 18:00
== END 2020-08-17 10:50 | disposition home or self-care (01) | DRG 331 ==
LOC: JD.MS 09:31
PROVIDERS: ADMIT Surgery; ATTEND Surgery
PROC: 0DTN4ZZ Resection of Sigmoid Colon, Percutaneous Endoscopic Approach (ICD-10-PCS; principal; 2020-08-13)
PROC: 0DJD8ZZ Inspection of Lower Intestinal Tract, Via Natural or Artificial Opening Endoscopic (ICD-10-PCS; 2020-08-13)
DX: K57.32 Diverticulitis of large intestine without perforation or abscess without bleeding (principal); E78.5 Hyperlipidemia, unspecified; K21.9 Gastro-esophageal reflux disease without esophagitis; Z87.440 Personal history of urinary (tract) infections; F41.9 Anxiety disorder, unspecified; Z90.710 Acquired absence of both cervix and uterus; Z90.721 Acquired absence of ovaries, unilateral
CPT/HCPCS: 00790; 36415; 80048; 85025; 86850; 86900; 86901; 93005; 94760; 94761; A9270-GY; J0171; J0330; J0694; J1100; J1170; J1644; J1885; J2001; J2250; J2370; J2405; J2704; J2710; J3010; J3490; J7120

== ENCOUNTER 2021-05-27 00:18 | Emergency (ER) | payer OTHER ==
[2021-05-27 00:34] VITALS: BP 170/84
--- NOTE | 2021-05-27 00:58 | EDM.PDOC ---
ED HPI GENERAL MEDICAL PROBLEM - General Chief Complaint: Chest Pain Stated Complaint: CHEST PAIN, ANXIETY Time Seen by Provider: 05/27/21 00:30 Source of Information: Reports: Patient History Limitations: Reports: No Limitations - History of Present Illness INITIAL COMMENTS - FREE TEXT/NARRATIVE: Mrs. Denis is a very pleasant 60-year-old woman who now presents to the ED stating that she developed left-sided chest pain radiating to her left scapular area this past 05/25/2021. She indicates her left chest pain as just above her left breast. She describes it as an achy pain. She states that it initially came and went, lasting only a moment, with infrequent recurrence, but that tonight it has been more constant. She has not identified any modifiers. No associated symptoms, such as dyspnea, nausea, diaphoresis, or sense of impending doom. No prior similar symptoms. The patient also reports that she developed pain felt behind her left ear evening, however, it was brief, resolved, and has not recurred. She also reports that she has had some nasal congestion for about 1 week. The patient states that she took 3 aspirin 81 mg tablets and applied some BenGay to her left shoulder around 23:45, without improvement of her symptoms. Here in the ED, the patient's initial BP is found to be elevated at 170/84, otherwise, she is afebrile, saturating 98% on room air. She appears to be somewhat anxious, but in no acute distress. Prior to Wednesday, the patient denies having a recent fever, chills, sore throat, ear pain, nasal or sinus congestion, cough, dyspnea, chest pain, palpitations, nausea, vomiting, constipation, diarrhea, abdominal pain, urinary symptoms, recent weight gain or weight loss, recent bloody bowel movements or black bowel movements, recent joint aches, headaches, or rashes. The patient's PCP is Dr. Teofilo Mcfadden. Her Surgeon is Dr. Mayur Stoner. She has not received a COVID vaccination. Left Chest Pain Score (Numeric/FACES): 5 - Related Data Allergies Allergy/AdvReac Type Severity Reaction Status Date / Time latex Allergy Hives Verified 05/27/21 00:26 amoxicillin [From Augmentin] AdvReac Nausea and Verified 05/27/21 00:26 Vomiting Anesthetics - Belia Type- AdvReac Nausea and Verified 08/03/21 00:26 Parabens Vomiting [Anesthetics - Belia Type] clavulanic acid AdvReac Nausea and Verified 05/27/21 00:26 [From Augmentin] Vomiting Home Meds: Home Meds Pravastatin [Pravachol] 40 mg PO DAILY 12/31/19 [History] Orphenadrine [Norflex] 1 tab PO Q12H PRN #14 tab.er 05/27/21 [Rx] Past Medical History Cardiovascular History: Reports: High Cholesterol Respiratory History: Reports: Sleep Apnea Gastrointestinal History: Reports: Diverticulosis (diverticulitis, s/p hemicolectomy), GERD (untreated) Genitourinary History: Reports: Renal Calculus Musculoskeletal History: Reports: Osteoarthritis, Other (See Below) (Benign sacral tumor, s/p excision) Psychiatric History: Reports: Anxiety (untreated), Panic Attack Endocrine/Metabolic History: Reports: Obesity/BMI 30+ Hematologic History: Reports: Anesthesia Reaction Oncologic (Cancer) History: Reports: Breast (left, s/p lumpectomy, RTx) - Infectious Disease History Infectious Disease History: Reports: Chicken Pox, Measles - Past Surgical History HEENT Surgical History: Reports: Oral Surgery (dental extractions) GI Surgical History: Reports: Appendectomy, Colon (hemicolectomy), Colonoscopy Female Surgical History: Reports: Hysterectomy (partial), Tubal Ligation Neurological Surgical History: Reports: Lumbar Spine (Benign sacral tumor excised. 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 ED EXAM, GENERAL - Physical Exam Exam: See Below Exam Limited By: No Limitations General Appearance: Alert, WD/WN, No Apparent Distress Eye Exam: Bilateral Eye: EOMI, Normal Inspection Ears: Normal External Exam, Hearing Grossly Normal Nose: Normal Inspection Throat/Mouth: Normal Inspection, Normal Lips, Normal Voice, No Airway Compromise Head: Atraumatic, Normocephalic Neck: Normal Inspection, Full Range of Motion Respiratory/Chest: No Respiratory Distress, Lungs Clear, Normal Breath Sounds, No Accessory Muscle Use, Other (Reproducible tenderness to palpation of the left pectoralis muscle superior to the left breast). No: Decreased Breath Sounds, Crackles, Rhonchi, Wheezing, Stridor, Prolonged Expiration Cardiovascular: Normal Peripheral Pulses, Regular Rate, Rhythm, No Edema, No Gallop, No JVD, No Murmur, No Rub Peripheral Pulses: 3+: Radial (L), Radial (R) GI/Abdominal: Normal Bowel Sounds, Soft, Non-Tender, No Organomegaly, No Distention, No Abnormal Bruit, No Mass Back Exam: Normal Inspection, Full Range of Motion, Other (Reproducible tenderness to palpation of the left parascapular musculature) Extremities: Normal Inspection, Normal Range of Motion, No Pedal Edema, Normal Capillary Refill Neurological: Alert, Oriented, Normal Cognition, No Motor/Sensory Deficits Psychiatric: Normal Affect Skin Exam: Warm, Dry, Intact, Normal Color, No Rash #1 Interpretation EKG Date: 05/27/21 Time: 00:26 Rhythm: NSR Rate (Beats/Min): 63 [place]: Normal P-Wave: Present QRS: Normal ST-T: Normal QT: Normal Comparison: No Change (08/13/2020) Course - Vital Signs Last Recorded V/S: Last Vital Signs Temp 36.3 C 05/27/21 00:31 Pulse 65 05/27/21 02:10 Resp 17 05/27/21 02:10 BP 170/84 H 05/27/21 00:31 Pulse Ox 96 05/27/21 02:10 - Orders/Labs/Meds Orders: Active Orders 24 hr Category Date Time Status Chest 2V [CR] Stat Exams 05/27/21 00:55 Taken Labs: Laboratory Tests 05/27/21 05/27/21 05/27/21 Range/Units 01:06 01:06 01:06 WBC 6.83 (3.98-10.04) K/mm3 RBC 4.24 (3.98-5.22) M/mm3 Hgb 12.4 D (11.2-15.7) gm/dl Hct 38.8 (34.1-44.9) % MCV 91.5 (79.4-94.8) fl MCH 29.2 (25.6-32.2) pg MCHC 32.0 L (32.2-35.5) g/dl RDW Std Deviation 45.8 (36.4-46.3) fL Plt Count 245 (182-369) K/mm3 MPV 10.3 (9.4-12.3) fl Neutrophils % (Manual) 46 (40-60) % Band Neutrophils % 2 (0-10) % Lymphocytes % (Manual) 41 H (20-40) % Atypical Lymphs % 0 % Monocytes % (Manual) 9 (2-10) % Eosinophils % (Manual) 2 (0.7-5.8) % Basophils % (Manual) 0 L (0.1-1.2) Platelet Estimate Adequate RBC Morph Comment Normal D-Dimer, Quantitative 0.81 H (0.19-0.50) mg/L Sodium 144 (136-145) mEq/L Potassium 4.2 (3.5-5.1) mEq/L Chloride 109 H (98-107) mEq/L Carbon Dioxide 27 (21-32) mEq/L Anion Gap 12.2 (5-15) BUN 17 (7-18) mg/dL Creatinine 0.8 (0.55-1.02) mg/dL Est Cr Clr Drug Dosing 63.77 mL/min Estimated GFR (MDRD) > 60 (>60) mL/min BUN/Creatinine Ratio 21.3 H (14-18) Glucose 111 H (70-99) mg/dL Calcium 8.9 (8.5-10.1) mg/dL Total Bilirubin 0.3 (0.2-1.0) mg/dL AST 26 (15-37) U/L ALT 50 (14-59) U/L Alkaline Phosphatase 78 (46-116) U/L Troponin I < 0.017 (0.00-0.056) ng/mL Total Protein 7.0 (6.4-8.2) g/dl Albumin 3.5 (3.4-5.0) g/dl Globulin 3.5 gm/dL Albumin/Globulin Ratio 1.0 (1-2) Meds: Medications Discontinued Medications Generic Name Dose Route Start Last Admin Trade Name Freq PRN Reason Stop Dose Admin Ibuprofen 600 mg 05/27/21 01:59 05/27/21 02:14 Ibuprofen 600 Mg Tab PO 05/27/21 02:00 600 mg ONETIME ONE Administration Orphenadrine Citrate 100 mg 05/27/21 01:59 05/27/21 02:13 Orphenadrine 100 Mg Tab.Er PO 05/27/21 02:00 100 mg ONETIME STA Administration - Re-Assessments/Exams Free Text/Narrative Re-Assessment/Exam: 05/27/21 00:56 As above, the patient has had, go left chest achiness radiating through to her left scapula since yesterday, more constant tonight. She also reports pain behind her left ear that lasted for only few minutes, but has since resolved, and nasal congestion for about 1 week. Her left-sided chest pain is reproducible with palpation of her chest above her left breast, and her left scapular pain is reproducible with palpation of the parascapular musculature. An ECG, obtained at triage, shows no ischemic changes. The patient's pain appears to be musculoskeletal in etiology, however, I have ordered several blood tests and a chest x-ray to be sure. 05/27/21 01:56 Two-view chest radiograph appears to be grossly normal. The cardiac silhouette is within normal limits. No pulmonary vascular congestion. No pleural effusions. No focal infiltrate. No pneumothorax. Formal read per the Radiologist pending. The patient's CBC is unremarkable. Her CMP is remarkable for slight hyperglycemia of 111, and is otherwise unremarkable. Her troponin is undetectably low. Her D-dimer is slightly elevated at 0.81. 05/27/21 01:59 Test results discussed with the patient. As above, today's work-up is grossly unremarkable. Her chest pain and left scapular pain are most likely musculoskeletal in etiology. I recommended treatment with Norflex and ibuprofen. The patient agreed. I will start her on the Norflex now, and submit a prescription to the pharmacy of her choice. If her symptoms fail to improve within the next few days, I would like her to follow-up with her PCP. Departure - Departure Time of Disposition: 02:00 Disposition: Home, Self-Care 01 Condition: Good Clinical Impression: Musculoskeletal chest pain - Discharge Information *PRESCRIPTION DRUG MONITORING PROGRAM REVIEWED*: Not Applicable *COPY OF PRESCRIPTION DRUG MONITORING REPORT IN PATIENT TEJINDER: Not Applicable Prescriptions: Orphenadrine [Norflex] 1 tab PO Q12H PRN #14 tab.er PRN Reason: Muscle Spasm - Painful Instructions: Chest Wall Pain Referrals: Teofilo Mcfadden MD [Primary Care Provider] - Mayur Stoner MD [Physician] - Forms: ED Department Discharge Additional Instructions: You were seen in the emergency room after developing left-sided chest pain radiating to your left shoulder blade area yesterday. Work-up in the ER included several blood tests, a chest x-ray, and an ECG. Your entire work-up was unremarkable. You have not suffered a heart attack. You do not have a blood clot in your lungs. You do not have a collapsed lung. Based on your history, physical exam, and ER tests, the cause of your chest and back pain is most likely musculoskeletal in etiology. You have been started on the muscle relaxant Norflex, and a prescription for Norflex has been sent to the [facility], located at [address] [place] [address]. Take 1 tablet of Norflex every 12 hours, starting this afternoon, 05/27/2021, as prescribed. Norflex works well with ibuprofen. We recommend that you take 3 tablets (600 mg) of ibuprofen with food, every 8 hours, [id number] initially, then as needed for discomfort. If your symptoms have not improved within a few days, we recommend that you follow-up with your PCP, Dr. Teofilo Mcfadden. If any other problems, please do not hesitate to return to the ER. Sepsis Event Note (ED) - Evaluation Sepsis Screening Result: No Definite Risk - Focused Exam Vital Signs: Vital Signs Temp Pulse Resp BP Pulse Ox 05/27/21 02:10 65 17 96 05/27/21 00:31 36.3 C 61 14 170/84 H 98 - My Orders Last 24 Hours: My Active Orders 05/27/21 00:55 Chest 2V [CR] Stat - Assessment/Plan Last 24 Hours: My Active Orders 05/27/21 00:55 Chest 2V [CR] Stat
[2021-05-27] MEDS ORDERED: Ibuprofen 600 MG Tab PO ONE (01:59)
[2021-05-27] MEDS ORDERED: Orphenadrine 100 MG Tab.ER PO STA (01:59)
[2021-05-27 02:22] VITALS: PULSE 65
--- NOTE | 2021-05-27 07:42 | CR ---
Chest: 2 views of the chest were obtained. Comparison: Prior chest x-ray of 01/15/20. Heart size and mediastinum are normal. Lungs are clear with no acute parenchymal change. Slight scoliosis is noted within the spine. Mild degenerative change is scattered within the spine. Impression: 1. Findings as noted above. 2. Nothing acute is seen. Diagnostic code #2
== END 2021-05-27 02:22 | disposition home or self-care (01) ==
LOC: JD.ED 00:18
DX: R07.89 Other chest pain (principal); E78.00 Pure hypercholesterolemia, unspecified; E66.9 Obesity, unspecified; Z91.040 Latex allergy status; Z88.0 Allergy status to penicillin; Z88.4 Allergy status to anesthetic agent; Z88.1 Allergy status to other antibiotic agents; Z79.899 Other long term (current) drug therapy
CPT/HCPCS: 36415; 71046; 80053; 84484; 85007; 85027; 85379; 93005; 99285; A9270; 93010; 99284

== ENCOUNTER 2022-10-09 11:32 | Emergency (ER) | payer OTHER ==
[2022-10-09 11:47] VITALS: BP 146/73; PULSE 81
[2022-10-09] MEDS ORDERED: Aspirin 81 MG Tab.Chew PO ONE (13:45)
[2022-10-09] MEDS ORDERED: Dextrose 5%-0.9% NaCl 1,000 ML IV SCH (13:45)
[2022-10-09] MEDS ORDERED: Ketorolac 30 MG/ML SDV IVPUSH SCH (13:45)
[2022-10-09] MEDS ORDERED: Metoclopramide 10 MG/2 ML SDV IVPUSH ONE (13:46)
[2022-10-09] MEDS ORDERED: HYDROmorphone 0.5 MG/0.5 ML Syringe IVPUSH ONE (13:46)
[2022-10-09 15:03] LABS: ESTIMATED GFR 101 mL/min (>60)
== END 2022-10-09 17:15 | disposition home or self-care (01) ==
LOC: JD.ED 11:32
DX: R07.89 Other chest pain (principal); E78.00 Pure hypercholesterolemia, unspecified; Z91.040 Latex allergy status; Z88.0 Allergy status to penicillin; Z88.4 Allergy status to anesthetic agent; Z79.899 Other long term (current) drug therapy; Z90.49 Acquired absence of other specified parts of digestive tract
CPT/HCPCS: 36415; 71045; 80053; 82553; 83735; 83880; 84484; 85025; 85379; 85610; 85730; 86140; 93005; 96361; 96374; 96375; 99285; A9270; J1170; J2765; J7042

== ENCOUNTER 2023-11-13 08:39 | Emergency (ER) | payer OTHER ==
[2023-11-13 09:01] VITALS: PULSE 54
[2023-11-13] MEDS ORDERED: Ondansetron 4 MG/2 ML SDV IVPUSH ONE (09:06)
[2023-11-13] MEDS ORDERED: Sodium Chloride 0.9% 10 ML Syringe FLUSH PRN (09:06)
[2023-11-13] MEDS ORDERED: Ketorolac 30 MG/ML SDV IVPUSH ONE (09:07)
[2023-11-13] MEDS ORDERED: HYDROmorphone 0.5 MG/0.5 ML Syringe IVPUSH ONE (09:08)
[2023-11-13] MEDS ORDERED: Sodium Chloride 0.9% 1,000 ML IV SCH (09:15)
[2023-11-13 09:22] LABS: BASOPHILS PERCENT AUTO 0.3 % (0.0-1.0); EOSINOPHILS ABSOLUTE AUTO 0.1 K/mm3 (0.0-0.4); EOSINOPHILS PERCENT AUTO 0.7 % (0.0-6.0); HEMATOCRIT 40.5 % (37.0-47.0); HEMOGLOBIN 13.3 gm/dl (12.0-16.0); IMMATURE GRAN ABSOLUTE AUTO 0.02 K/mm3 (0.00-0.05); IMMATURE GRAN PERCENT AUTO 0.2 % (0.0-0.4); LYMPHOCYTES ABSOLUTE AUTO 1.4 K/mm3 (1.0-4.8); MEAN CORPUSCULAR HEMOGLOBIN 29.8 pg (28.0-32.0); MEAN CORPUSCULAR HGB CONC 32.8 g/dl (32.0-36.0); MEAN CORPUSCULAR VOLUME 90.8 fl (83.0-99.0); MEAN PLATELET VOLUME 11.1 fl (9.4-12.3); MONOCYTES ABSOLUTE AUTO 0.4 K/mm3 (0.0-0.8); MONOCYTES PERCENT AUTO 5.1 % (0.0-8.0); NEUTROPHILS ABSOLUTE AUTO 6.7 K/mm3 (1.8-7.7); NEUTROPHILS PERCENT AUTO 77.7 % (41.0-71.0); PLATELET COUNT,PLT 217 K/mm3 (150-400); RED BLOOD CELL COUNT 4.46 M/mm3 (4.10-5.30)
[2023-11-13 09:31] LABS: A/G RATIO 1.1 (1-2); ALBUMIN 3.7 g/dl (3.4-5.0); BILIRUBIN TOTAL 0.8 mg/dL (0.2-1.0); BUN/CREATININE RATIO 11.3 (14-18); CALCIUM 9.3 mg/dL (8.5-10.1); CREATININE 0.8 mg/dL (0.55-1.02); EST CRCL DRUG DOSING (CG) 58.77 mL/min; PROTEIN TOTAL,TP 7.2 g/dl (6.4-8.2)
[2023-11-13 10:15] LABS: APPEARANCE,URINE CLOUDY (Clear); BILIRUBIN,URINE 1+ (Negative); COLOR,URINE DARK YELLOW (Yellow); GLUCOSE,URINE NEGATIVE (Negative); KETONES,URINE 4+ (Negative); LEUKOCYTE ESTERASE,URINE NEGATIVE (Negative); NITRITE,URINE NEGATIVE (Negative); OCCULT BLOOD,URINE NEGATIVE (Negative); PH,URINE 5.5 (5.0-8.0); PROTEIN,URINE 1+ (Negative); UROBILINOGEN,URINE 0.2 (0.2-1.0)
[2023-11-13 10:34] LABS: BACTERIA,URINE FEW /hpf (FEW); MUCUS,URINE MANY /hpf (FEW); RBC,URINE 0-5 /hpf (0-5); WBC,URINE 0-5 /hpf (0-5)
[2023-11-13 15:37] VITALS: BP 117/67
== END 2023-11-13 15:00 | disposition home or self-care (01) ==
LOC: JD.ED 08:39
DX: N20.2 Calculus of kidney with calculus of ureter (principal); E78.00 Pure hypercholesterolemia, unspecified; Z88.0 Allergy status to penicillin; Z91.040 Latex allergy status; Z79.899 Other long term (current) drug therapy; Z90.49 Acquired absence of other specified parts of digestive tract; Z88.1 Allergy status to other antibiotic agents
CPT/HCPCS: 36415; 74176; 80053; 81001; 83690; 85025; 96361; 96374; 96375; 99284; J1170; J1885; J2405; J3490; J7030

== ENCOUNTER 2025-08-10 22:58 | Emergency (ER) | payer OTHER ==
[2025-08-10] MEDS: Sodium Chloride 0.9% 10 ML Syringe FLUSH PRN (23:54)
[2025-08-10] MEDS: Ketorolac 30 MG/ML SDV IVPUSH ONE (23:54)
[2025-08-10 23:56] VITALS: BP 116/54; PULSE 51
[2025-08-11 00:01] LABS: BASOPHILS ABSOLUTE AUTO 0.0 K/mm3 (0.0-0.2); BASOPHILS PERCENT AUTO 0.6 % (0.0-1.0); EOSINOPHILS ABSOLUTE AUTO 0.1 K/mm3 (0.0-0.4); EOSINOPHILS PERCENT AUTO 1.7 % (0.0-6.0); IMMATURE GRAN ABSOLUTE AUTO 0.02 K/mm3 (0.00-0.05); IMMATURE GRAN PERCENT AUTO 0.3 % (0.0-0.4); LYMPHOCYTES ABSOLUTE AUTO 3.0 K/mm3 (1.0-4.8); LYMPHOCYTES PERCENT AUTO 42.0 % (24.0-44.0); MEAN PLATELET VOLUME 10.4 fl (9.4-12.3); MONOCYTES ABSOLUTE AUTO 0.6 K/mm3 (0.0-0.8); MONOCYTES PERCENT AUTO 7.8 % (0.0-8.0); NEUTROPHILS ABSOLUTE AUTO 3.4 K/mm3 (1.8-7.7); NEUTROPHILS PERCENT AUTO 47.6 % (41.0-71.0); NRBC ABSOLUTE 0.00 (0.00-0.02); NRBC PERCENT 0.0 % (0.0-0.2); PLATELET COUNT,PLT 226 K/mm3 (150-400); RED BLOOD CELL COUNT 3.96 M/mm3 (4.10-5.30); WHITE BLOOD CELL COUNT,WBC 7.09 K/mm3 (3.9-11.3)
[2025-08-11 00:02] LABS: APPEARANCE,URINE CLEAR (Clear); GLUCOSE,URINE NEGATIVE (Negative); OCCULT BLOOD,URINE NEGATIVE (Negative)
[2025-08-11 00:26] LABS: A/G RATIO 1.1 (1-2); ALANINE AMINOTRANSFERASE,ALT 44.0 U/L (14-59); ASPARTATE AMNIOTRANSFERASE,AST 22.0 U/L (15-37); BILIRUBIN TOTAL 0.3 mg/dL (0.2-1.0); BLOOD UREA NITROGEN,BUN 15.0 mg/dL (7-18); CARBON DIOXIDE,CO2 32.0 mEq/L (21-32); CHLORIDE,CL 106.0 mEq/L (98-107); CREATININE 0.7 mg/dL (0.55-1.02); EST CRCL DRUG DOSING (CG) 66.28 mL/min; ESTIMATED GFR 96.0 mL/min (>60); GLUCOSE RANDOM 93.0 mg/dL (70-99); POTASSIUM,K 4.6 mEq/L (3.5-5.1); PROTEIN TOTAL,TP 6.6 g/dl (6.4-8.2); SODIUM,NA 143.0 mEq/L (136-145)
[2025-08-11 00:27] LABS: SQUAMOUS EPITHELIAL CELLS,UR 0-5 /hpf (0-5)
[2025-08-11] MEDS ORDERED: Sodium Chloride 0.9% 10 ML Syringe FLUSH PRN (00:39)
[2025-08-11] MEDS: Iopamidol 612 MG/ML 100 ML Bottle IVPUSH ONE (00:49)
[2025-08-11] MEDS: cefTRIAXone 1 GM in Water For Injection, Sterile 10 ML IVPUSH ONE (02:09)
== END 2025-08-11 02:25 | disposition home or self-care (01) ==
LOC: JD.ED 22:58
DX: N20.0 Calculus of kidney (principal); E78.00 Pure hypercholesterolemia, unspecified; E66.9 Obesity, unspecified; M19.90 Unspecified osteoarthritis, unspecified site; Z79.899 Other long term (current) drug therapy; Z88.1 Allergy status to other antibiotic agents; Z88.8 Allergy status to other drugs, medicaments and biological substances; Z91.040 Latex allergy status; Z90.49 Acquired absence of other specified parts of digestive tract; Z90.710 Acquired absence of both cervix and uterus; Z68.26 Body mass index [BMI] 26.0-26.9, adult
CPT/HCPCS: 36415; 74177; 80053; 81001; 83690; 85025; 87086; 87088; 87186; 96361; 96374; 96375; 99284; J0696; J1885; J7030; Q9967; 99283

== ENCOUNTER 2025-10-03 17:33 | Emergency (ER) | payer OTHER ==
[2025-10-03 21:19] VITALS: BP 116/68; PULSE 58
== END 2025-10-03 21:12 | disposition home or self-care (01) ==
LOC: JD.ED 17:33
DX: M79.671 Pain in right foot (principal); M79.89 Other specified soft tissue disorders; E66.9 Obesity, unspecified; Z90.710 Acquired absence of both cervix and uterus; Z91.040 Latex allergy status; Z88.0 Allergy status to penicillin; Z88.4 Allergy status to anesthetic agent; Z88.1 Allergy status to other antibiotic agents; Z68.24 Body mass index [BMI] 24.0-24.9, adult
CPT/HCPCS: 73630-26-RT; 73630-RT; 93971-26-RT; 93971-RT; 99284